=== PATIENT | female | born 1935 | race Caucasian/White ===

== ENCOUNTER → 2021-04-13 | Outpatient (CLI) | payer SELFPAY | LOC: LAB SHORT 15:21 | DX: R30.0 Dysuria (principal) | CPT/HCPCS: 87077; 87086; 87186 ==

== ENCOUNTER → 2022-07-10 | Outpatient (CLI) | payer MEDICARE, OTHER | END | disposition home or self-care (01) | LOC: LAB SHORT 14:00 → LAB 14:00 | DX: R30.0 Dysuria (principal) | CPT/HCPCS: 87086 ==

== ENCOUNTER → 2023-02-23 | Outpatient (CLI) | payer MEDICARE | LOC: LAB SHORT 15:15 → LAB 15:15 | DX: R10.9 Unspecified abdominal pain (principal) | CPT/HCPCS: 87086 ==

== ENCOUNTER → 2023-04-28 | Outpatient (CLI) | payer MEDICARE ==
[2023-04-30 12:59] LABS: Stool Occult Bld Immuno 1 Positive (NEGATIVE)
== END ==
LOC: LAB 09:15 → LAB SHORT 09:15
PROVIDERS: Student in an Organized Health Care Education/Training Program
DX: D50.9 Iron deficiency anemia, unspecified (principal)
CPT/HCPCS: 82274

== ENCOUNTER → 2023-05-11 | Outpatient (CLI) | payer MEDICARE ==
[2023-05-14 12:40] LABS: Stool Occult Bld Immuno 1 Negative (NEGATIVE)
== END ==
LOC: LAB 11:15 → LAB SHORT 11:15
PROVIDERS: Student in an Organized Health Care Education/Training Program
DX: D50.9 Iron deficiency anemia, unspecified (principal)
CPT/HCPCS: 82274

== ENCOUNTER → 2023-05-21 | Outpatient (CLI) | payer MEDICARE | LOC: LAB 17:08 → LAB SHORT 17:08 | DX: R30.0 Dysuria (principal) | CPT/HCPCS: 87086 ==

== ENCOUNTER 2023-06-01 11:49 | Inpatient (IN) | payer MEDICARE, OTHER ==
[~2023-06-01] VITALS: Ht 162.6 cm; Wt 64.0 kg
[2023-06-01] MEDS ORDERED: NS 1,000 ML IV SCH ×2 (12:30→15:20)
[2023-06-01 12:41] LABS: BASOPHILS ABSOLUTE AUTO 0.02 K/mm3 (0.00-0.23); BASOPHILS PERCENT AUTO 0 % (0-2); EOSINOPHILS PERCENT AUTO 0 % (0-6); Hematocrit 34.4 % (33.0-51.0); Hemoglobin 11.3 g/dL (11.5-16.0); IMMATURE GRAN ABSOLUTE AUTO 0.06 K/mm3 (0.00-0.10); IMMATURE GRAN PERCENT AUTO 0 % (0-1); LYMPHOCYTES PERCENT AUTO 2 % (21-46); MONOCYTES ABSOLUTE AUTO 0.59 K/mm3 (0.16-1.47); MONOCYTES PERCENT AUTO 4 % (4-13); Mean Corpuscular HGB 23.8 pg (26.0-34.0); Mean Corpuscular HGB Conc 32.8 g/dL (31.5-36.5); Mean Corpuscular Volume 73 fL (80-100); Mean Platelet Volume 9.4 fL (9.1-12.4); NEUTROPHILS ABSOLUTE AUTO 14.72 K/mm3 (1.96-9.15); NEUTROPHILS PERCENT AUTO 94 % (41-73); Platelet Count 461 K/mm3 (150-400); RDW Standard Deviation 59.4 fL (35.1-46.3); Red Blood Cell Count 4.74 M/mm3 (3.80-5.20); White Blood Cell Count 15.69 K/mm3 (4.00-11.30)
[2023-06-01] MEDS ORDERED: Ondansetron HCl 2 MG / ML 2ML Vial IV ONE (12:55)
[2023-06-01] MEDS ORDERED: HYDROmorphone HCl/Pf 1MG SYR IV ONE (12:55)
[2023-06-01] MEDS ORDERED: LIPITOR80 MG PO (13:05)
[2023-06-01] MEDS ORDERED: METOPROLOL SUCC25 MG PO (13:05)
[2023-06-01] MEDS ORDERED: FERSU300 PO (13:06)
[2023-06-01 13:10] LABS: Albumin, Blood 2.5 g/dL (3.4-5.0); Albumin/Globulin Ratio 0.7 (0.8-1.8); Bilirubin, Total 1.1 mg/dL (0.1-1.0); Bun/Creatinine Ratio 25.8 (12.0-20.0); Calcium, Blood 8.5 mg/dL (8.5-10.1); Creatinine, Blood 0.7 mg/dL (0.40-1.00); Globulin, Blood 3.7 g/dL (2.2-4.0); Potassium, Blood 4.1 mmol/L (3.5-5.5); Total Protein, Blood 6.2 g/dL (6.4-8.2)
[2023-06-01] MEDS ORDERED: Metoprolol Tartrate 1 MG/ML 5 ML VIAL IV ONE (13:50)
[2023-06-01 13:55] LABS: Source, Urine Fem Cath
[2023-06-01 13:58] LABS: Appearance, Urine Clear (Clear); Bilirubin, Urine Neg (Neg); Blood, Urine Neg (Neg); Color, Urine Yellow (P-Yellow); Glucose Qualitative, Urine Neg (Neg); Ketones, Urine 1+ (Neg); Leukocyte Esterase, Urine Neg (Neg); Nitrite, Urine Neg (Neg); Protein, Urine 1+ (Neg); Specific Gravity, Urine 1.025 (1.003-1.022); Urobilinogen, Urine NORM (Normal)
[2023-06-01] MEDS ORDERED: FLU VACC QS2023-24(6MOS UP)/PF 60 MCG/0.5 ML SYRINGE IM ONE (15:20)
[2023-06-01] MEDS ORDERED: MetroNIDAZOLE 500MG/NS 100 ml 100 ML IV SCH (16:00)
[2023-06-01] MEDS ORDERED: CefTRIAXone Sodium 1,000 MG in NS 50 ML IV SCH (16:00)
[2023-06-01] MEDS ORDERED: Ondansetron HCl 2 MG / ML 2ML Vial IV PRN (16:10)
[2023-06-01 16:13] LABS: International Normalized Ratio 1.11; Prothrombin Time Results 11.6 Sec (9.7-11.5)
[2023-06-01] MEDS ORDERED: Morphine Sulfate 4 MG/1 ML Injection IV PRN (16:15)
[2023-06-01 16:19] LABS: Percent Saturation 5.6 % (15.0-50.0)
[2023-06-01 16:41] VITALS: BP 157/73
--- NOTE | 2023-06-01 17:39 | NUR ---
ARRIVAL TO PCU/SHIFT SUMMARY patient arrived to pcu at 1628 from ed and transfered to pcu bed via slider sheet. vital signs stable. when arriving patient was in sinus rhythm in the 80-90s and about 10s mins after arriving heart rate increased to 130s, and appears to be in sinus tach. this rn informed md mueller and orders placed. patient is alert and oriented x4. perrla. patient is able to make needs known and uses call light appropriately. neuro is intact. patient uses a cane at baseline. see admit shift assessment for further detials. admit is complete. surgery consult called in. patient is npo and patient and patient granddaughte aware of plan and verbalized understanding. plan of care is up to date.
[2023-06-01] MEDS ORDERED: Metoprolol Tartrate 1 MG/ML 5 ML VIAL IV PRN (17:40)
[2023-06-01] MEDS ORDERED: Metoprolol Succinate 25 MG TABCR PO ONE (17:45)
[2023-06-01 18:36] VITALS: BP 156/99
[2023-06-01 19:33] VITALS: BP 160/95
[2023-06-02] VITALS (21 sets, daily range): BP systolic 119–175; BP diastolic 61–108
[2023-06-02 04:09] LABS: Hematocrit 32.7 % (33.0-51.0); Hemoglobin 10.2 g/dL (11.5-16.0); Mean Corpuscular HGB 23.3 pg (26.0-34.0); Mean Corpuscular HGB Conc 31.2 g/dL (31.5-36.5); Mean Corpuscular Volume 75 fL (80-100); Mean Platelet Volume 9.7 fL (9.1-12.4); Platelet Count 482 K/mm3 (150-400); RDW Standard Deviation 61.7 fL (35.1-46.3); Red Blood Cell Count 4.38 M/mm3 (3.80-5.20); White Blood Cell Count 13.41 K/mm3 (4.00-11.30)
[2023-06-02 04:30] LABS: Albumin/Globulin Ratio 0.6 (0.8-1.8); Bilirubin, Total 0.8 mg/dL (0.1-1.0); Bun/Creatinine Ratio 26.2 (12.0-20.0); Creatinine, Blood 0.65 mg/dL (0.40-1.00); Globulin, Blood 3.2 g/dL (2.2-4.0); Potassium, Blood 4.2 mmol/L (3.5-5.5); Total Protein, Blood 5.2 g/dL (6.4-8.2)
[2023-06-02 04:44] LABS: BAND PERCENT MAN 4 % (0-8); BASOPHILS PERCENT MAN 0 % (0-2); EOSINOPHILS PERCENT MAN 0 % (0-6); LYMPHOCYTES PERCENT MAN 3 % (21-46); MONOCYTES PERCENT MAN 12 % (4-13); NEUTROPHILS ABSOLUTE MAN 11.39 K/mm3 (1.96-9.15); SEG NEUTROPHILS PERCENT MAN 81 % (41-73); TOTAL CELLS COUNTED 100
[2023-06-02] MEDS ORDERED: Dextrose 50% 50 ML Syringe IV ONE (04:45)
--- NOTE | 2023-06-02 05:10 | NUR ---
SHIFT SUMMARY PT A&O X4. ABLE TO MAKE NEEDS KNOWN. SLIGHTLY YAVAPAI-APACHE. SR/ST ON MONITOR RANGING FROM 70-140'S. LOPRESSOR PUSH GIVEN X1 FOR HR 130-140'S, HR DECREASED TO 120'S AFTER ADMINISTRATION. BP STABLE. AFEBRILE. ON RA WITH SPO2 >92%. UP TO BATHROOM WITH FWW. PT NPO. CALLING APPROPRIATELY. PT'S GLUCOSE NOTED TO BE 64 ON MORNING LABS. CALL PLACED TO MD QUINN REGARDING HYPOGLYCEMIA AND NPO STATUS FOR POSSIBLE SURGICAL INTERVENTION AND BOWEL OBSTRUCTION. ORDER FOR 1 AMP OF D50 GIVEN PER EMAR. WILL RECHECK BS PER PROTOCOL. BED IN LOWEST POSITION AND CALL LIGHT WITHIN REACH. THIS RN WILL REPORT TO MARIETTA QUIÑONES RN.
[2023-06-02] MEDS ORDERED: D5W-NS 1,000 ML IV SCH (09:00)
[2023-06-02] MEDS ORDERED: Rocuronium Bromide 10 MG/ML 5ML Injection IV ONE (09:17)
[2023-06-02] MEDS ORDERED: propofoL 20 ML IV ONE (09:17)
[2023-06-02] MEDS ORDERED: FentaNYL Citrate 50 MCG/ML 2 ML Injection ONE ×4 (09:18→13:22)
[2023-06-02] MEDS ORDERED: Lactated Ringer's 1,000 ML IV ONE (10:20)
[2023-06-02] MEDS ORDERED: Bupivacaine 0.5% HCl 5 MG/ML 30MLVIAL ONE (10:55)
[2023-06-02] MEDS ORDERED: Ondansetron HCl 2 MG / ML 2ML Vial IV PRN (11:10)
[2023-06-02] MEDS ORDERED: HYDROmorphone HCl/Pf 1MG SYR IV PRN ×2 (11:10→15:30)
[2023-06-02] MEDS ORDERED: FentaNYL Citrate 50 MCG/ML 2 ML Injection IV PRN ×2 (11:10)
[2023-06-02] MEDS ORDERED: Phenylephrine HCl 100 MCG/ML-NS 10MLSYR (1MG/10ML) ONE (11:19)
[2023-06-02] MEDS ORDERED: ePHEDrine Sulfate 50 MG/ML 1ML Injection ONE (11:22)
[2023-06-02] MEDS ORDERED: Ondansetron HCl 2 MG / ML 2ML Vial ONE (11:31)
[2023-06-02] MEDS ORDERED: Dexamethasone Sod Phos 10 MG/ML 1ML VIAL ONE (11:31)
[2023-06-02] MEDS ORDERED: Sugammadex Sodium 200 MG/2ML SDV (100 MG/ML) ONE (12:00)
[2023-06-02] MEDS ORDERED: Metoprolol Succinate 25 MG TABCR PO SCH (17:05)
[2023-06-02] MEDS ORDERED: Metoprolol Tartrate 25 MG Tab PO ONE (19:35)
--- NOTE | 2023-06-02 19:42 | NUR ---
SHIFT SUMMARY POD0 R DENILSON COLECTOMY, A/O X2-3, PT HAS BEEN INCREASINGLY CONFUSED TODAY POST OPERATIVELY, SHE HAD RUN OF SVT TODAY AND WAS GIVEN HER PRN JOSIANE, NOTIFIED WHEN HR ONLY CAME DOWN TO 140'S, GAVE 0900 METOPROLOL PER RESIDENTS ORDER. PAIN WAS DIFFICULT TO MANAGE INITIALLY BUT WAS IMPROVED AFTER DISCUSSING THIS WITH SURGEON. SHE HAS BEEN PULLING AT LINES SHE HAS BEEN CONFUSED AND STAFF HAVE HAD TO FIX TELEMETRY LEADS 4X IN THE LAST HOUR OF THE SHIFT. PT MOVED TO ROOM 212 TO BE CLOSER TO RN STATION. NO OTHER EVENTS THIS SHIFT, CALL LIGHT IN REACH.
[2023-06-02] MEDS ORDERED: Metoprolol Tartrate 1 MG/ML 5 ML VIAL IV ONE (20:35)
--- NOTE | 2023-06-02 21:01 | NUR ---
HEART RATE MANAGEMENT NOTIFIED ABOUT 1950 FROM TELEMETRY THAT THE PT'S HR WAS 150'S AND SUSTAINING. VITALS OBTAINED. CALL PLACED TO [facility]. DR. COOK ORDERED 25 MG PO METOPROLOL AND TO RECHECK IN 45 MINUTES. HR REMAINED 139-145. DR COOK UPDATED AND RECIEVED ORDER FOR IV METOPROLOL IV. HR FELL TO THE 80'S WITHIN MINUTES.
[2023-06-03 04:23] VITALS: BP 116/60
--- NOTE | 2023-06-03 05:21 | NUR ---
SHIFT SUMMARY POD1 R HEMICOLECTOMY. PICCO REMAINS C/D/I, ONE SMALL SPOT OF EXUDATE REMAINS THE SAME T/O THE NIGHT. VSS, TELE READS SR 81. PT TIRATED TO RA. PLEASE SEE PREVIOUS NOTE FOR HR MANAGEMENT. PT SLEPT WELL T/O THE NIGHT. TOLLERATED WATER W/O N/V. DID NOT GET OOB THIS SHIFT. HOANG REMAINS IN PLACE, LOW URINE OUTPUT NOTED, 100MLS. URINE WAS DARK BROWN. HOSPITALIST NOTIFIED, NO NEW ORDERS RECIEVED. IV FLUIDS INFUSED T/O THE NIGHT. NO ACUTE EVENTS NOTED T/O THE NIGHT.
[2023-06-03 05:36] LABS: Hematocrit 31.3 % (33.0-51.0); Hemoglobin 9.8 g/dL (11.5-16.0); Mean Corpuscular HGB 23.4 pg (26.0-34.0); Mean Corpuscular HGB Conc 31.3 g/dL (31.5-36.5); Mean Corpuscular Volume 75 fL (80-100); Mean Platelet Volume 9.4 fL (9.1-12.4); Platelet Count 445 K/mm3 (150-400); RDW Coefficient Variation 22.8 % (11.7-14.2); RDW Standard Deviation 61.4 fL (35.1-46.3); Red Blood Cell Count 4.18 M/mm3 (3.80-5.20); White Blood Cell Count 10.92 K/mm3 (4.00-11.30)
[2023-06-03 05:56] LABS: Albumin, Blood 1.7 g/dL (3.4-5.0); Albumin/Globulin Ratio 0.6 (0.8-1.8); Bilirubin, Total 0.3 mg/dL (0.1-1.0); Calcium, Blood 7.6 mg/dL (8.5-10.1); Globulin, Blood 2.9 g/dL (2.2-4.0); Potassium, Blood 4.2 mmol/L (3.5-5.5); Total Protein, Blood 4.6 g/dL (6.4-8.2)
[2023-06-03 06:01] LABS: BAND PERCENT MAN 4 % (0-8); BASOPHILS PERCENT MAN 0 % (0-2); EOSINOPHILS PERCENT MAN 0 % (0-6); LYMPHOCYTES ABSOLUTE MAN 0.32 K/mm3 (0.84-5.20); LYMPHOCYTES PERCENT MAN 3 % (21-46); MONOCYTES ABSOLUTE MAN 0.87 K/mm3 (0.16-1.47); MONOCYTES PERCENT MAN 8 % (4-13); NEUTROPHILS ABSOLUTE MAN 9.71 K/mm3 (1.96-9.15); SEG NEUTROPHILS PERCENT MAN 85 % (41-73); TOTAL CELLS COUNTED 100
[2023-06-03 07:15] VITALS: BP 110/62
[2023-06-03] MEDS ORDERED: Metoprolol Succinate 25 MG TABCR PO SCH (09:00)
--- NOTE | 2023-06-03 11:48 | NUR ---
DR DELGADO IN TO SEE PT/FAMILY
[2023-06-03 15:02] VITALS: BP 111/60
--- NOTE | 2023-06-03 15:47 | NUR ---
URINE ROOTBEER COLOR IN APPEARANCE. REPORTED URINE APPEARANCE AND ONLY APPROXIMATELY 150 ML OUT THIS SHIFT TO DR COLEMAN. CONTINUE FLUIDS AT CURRENT RATE.
--- NOTE | 2023-06-03 16:55 | NUR ---
SUMMARY PT HAS BEEN VERY SLEEPY T/O MOST OF SHIFT. WAKES TO VOICE AND THEN RETURNS TO SLEEP. PT'S SON DID NOT FEEL PT ABLE TO WORK WITH PT DUE TO FATIGUE/SLEEPINESS. DISCUSSED IMPORTANCE OF MOBILIZING. PT'S SON VERBALIZED UDNERSTANDING AND IS AGREEABLE. PT HAS HAD LOW URINARY OUTPUT THIS SHIFT AND URINE IS ROOTBEER COLOR IN APPEARANCE. DR COLEMAN AWARE. PT APPEARS FLUSHED THIS AFTERNOON. ORAL TEMP WAS 99.1. INSTRUCTED PT AND PT'S SON ON IS USE. PT HAD DIFFICULTY DEMONSTRATING. SON STATED HE WOULD CONTINUE TO WORK ON IT WITH HER. REPOSITIONED PT T/O SHIFT. CALL LIGHT IN REACH. IV FLUIDS INFUSING PER ORDERS.
--- NOTE | 2023-06-03 18:08 | NUR ---
PATIENTS SON REQUEST TO LET HER SLEEP.OFFERED TO WAKE AND SET DINNER UP.
[2023-06-03 19:04] VITALS: BP 104/60
[2023-06-03 22:55] VITALS: BP 112/66
[2023-06-04 04:03] VITALS: BP 116/66
--- NOTE | 2023-06-04 06:27 | NUR ---
POD 2 S/P DENILSON COLECTOMY. PT VSS T/O NIGHT. KLEBER DRESSING W/SEAL AND SX INTACT, NO INC DRNG NOTED. PT DENIED PAIN T/O NIGHT, DECLINED PAIN MEDS. KPAD AND REPOSITIONING FOR COMFORT PRN. BT HYPO, NO CHANGES IN DISTENTION, PT DENIED N/V, REP NO FLATUS YET. PT ASSISTED W/SIPS OF WATER. HOANG PATANT, URINE REMAINS COLA COLORED, 150 ML UO OUT THIS SHIFT. IVF CONT PER ORDERS. SON PRESENT IN ROOM T/O NIGHT.
[2023-06-04 07:58] VITALS: BP 128/63
--- NOTE | 2023-06-04 08:02 | NUR ---
DRS IN TO SEE PT. DISCUSSED URINE OUTPUT. PERFORMING BS. REPORTED BRUISING TO RUE R/T IV INFILTRATION ON SATURDAY.
[2023-06-04 08:46] LABS: Albumin, Blood 1.5 g/dL (3.4-5.0); Anion Gap 0 mmol/L (6-16); Blood Urea Nitrogen 21 mg/dL (8-24); Bun/Creatinine Ratio 22.6 (12.0-20.0); CO2, Blood 23 mmol/L (21-32); Calcium, Blood 7.4 mg/dL (8.5-10.1); Chloride, Blood 118 mmol/L (98-108); Creatinine, Blood 0.93 mg/dL (0.40-1.00); Glomerular Filtration Rate 59 (60-); Glucose, Blood 121 mg/dL (70-99); Phosphorus, Blood 1.7 mg/dL (2.5-4.9); Potassium, Blood 3.7 mmol/L (3.5-5.5); Sodium, Blood 141 mmol/L (136-145)
[2023-06-04] MEDS ORDERED: Atorvastatin 40 MG Tab PO SCH (09:00)
--- NOTE | 2023-06-04 11:20 | NUR ---
DR DELGADO IN TO SEE PT. PT UP IN RECLINER. PROVIDED ORAL SWAB FOR PT FOR COMFORT. PT DENIES ANY OTHE NEEDS. FAMILY BEDSIDE.
[2023-06-04 16:09] VITALS: BP 122/65
[2023-06-04] MEDS ORDERED: Lactated Ringer's 1,000 ML IV SCH (16:55)
--- NOTE | 2023-06-04 18:18 | NUR ---
SUMMARY NO ACUTE CHANGES T/O SHIFT. PT WORKED WITH THERAPY AND SAT UP IN CHAIR FOR APPROXIMATELY 2 HOURS. ADVANCED TO REGULAR DIET FOR DINNER. TAKING SMALL AMOUNTS OF PO INTAKE. HAS DENIED NEED FOR PAIN MEDS. PASSED FLATUS THIS AM. URINARY OUTPUT CONTINUES TO BE POOR AND VERY DARK. DISCUSSED WITH DR COLEMAN AND ORDERS OBTAINED TO CHANGE FLUIDS TO LR AT 125/HR. FAMILY HAS BEEN BEDSIDE T/O DAY. CALL LIGHT IN REACH.
[2023-06-04 18:53] VITALS: BP 95/55
[2023-06-04] MEDS ORDERED: Enoxaparin 40 MG/0.4 ML SYR SC SCH (21:00)
--- NOTE | 2023-06-05 04:09 | NUR ---
SHIFT SUMMARY POD 3 R HEMICOLECTOMY PT ABLE TO SLEEP ALL NIGHT. DENIES ANY PAIN. STILL LITTLE URINE OUTPUT. URINE STILL ROOTBEER COLORED. HOANG PATENT AND DRAINING TO GRAVITY. IV FLUIDS RUNNING PER ORDER. VSS. NO OTHER CONCERNS AT THIS TIME. CALL LIGHT WITHIN REACH.
[2023-06-05 04:27] VITALS: BP 127/67
[2023-06-05 04:55] LABS: BASOPHILS ABSOLUTE AUTO 0.02 K/mm3 (0.00-0.23); BASOPHILS PERCENT AUTO 0 % (0-2); EOSINOPHILS ABSOLUTE AUTO 0.04 K/mm3 (0.00-0.68); EOSINOPHILS PERCENT AUTO 0 % (0-6); Hematocrit 26.1 % (33.0-51.0); Hemoglobin 8.4 g/dL (11.5-16.0); IMMATURE GRAN ABSOLUTE AUTO 0.11 K/mm3 (0.00-0.10); IMMATURE GRAN PERCENT AUTO 1 % (0-1); LYMPHOCYTES ABSOLUTE AUTO 0.64 K/mm3 (0.84-5.20); LYMPHOCYTES PERCENT AUTO 4 % (21-46); MONOCYTES ABSOLUTE AUTO 0.88 K/mm3 (0.16-1.47); MONOCYTES PERCENT AUTO 6 % (4-13); Mean Corpuscular HGB 23.4 pg (26.0-34.0); Mean Corpuscular HGB Conc 32.2 g/dL (31.5-36.5); Mean Corpuscular Volume 73 fL (80-100); Mean Platelet Volume 9.9 fL (9.1-12.4); NEUTROPHILS PERCENT AUTO 89 % (41-73); Platelet Count 336 K/mm3 (150-400); RDW Coefficient Variation 22.4 % (11.7-14.2); RDW Standard Deviation 58.7 fL (35.1-46.3); Red Blood Cell Count 3.59 M/mm3 (3.80-5.20); White Blood Cell Count 15.49 K/mm3 (4.00-11.30)
[2023-06-05 05:09] LABS: Albumin, Blood 1.3 g/dL (3.4-5.0); Albumin/Globulin Ratio 0.4 (0.8-1.8); Bilirubin, Total 0.4 mg/dL (0.1-1.0); Calcium, Blood 7.3 mg/dL (8.5-10.1); Creatinine, Blood 0.81 mg/dL (0.40-1.00); Globulin, Blood 2.9 g/dL (2.2-4.0); Potassium, Blood 3.7 mmol/L (3.5-5.5); Total Protein, Blood 4.2 g/dL (6.4-8.2)
[2023-06-05 07:26] VITALS: BP 124/60
[2023-06-05] MEDS ORDERED: TraMADol HCl 50 MG Tab PO PRN (11:15)
[2023-06-05 15:15] VITALS: BP 118/66
[2023-06-05] MEDS ORDERED: Thiamine HCl 100 MG Tab PO ONE (17:25)
[2023-06-05 18:47] VITALS: BP 127/64
[2023-06-05 18:50] LABS: Magnesium, Blood 1.6 mg/dL (1.6-2.4)
[2023-06-05 18:51] LABS: Phosphorus, Blood 1.7 mg/dL (2.5-4.9)
--- NOTE | 2023-06-05 20:08 | NUR ---
SHIFT SUMMARY PT HAS AN INCREASE IN PO INTAKE, URINE OUTPUT, & ACTIVITY. CONT's TO HAVE VERY DARK, SODA COLORED URINE. TRAMADOL WORKED WELL FOR PAIN.
[2023-06-06 04:54] VITALS: BP 122/65
[2023-06-06 05:08] LABS: BASOPHILS ABSOLUTE AUTO 0.03 K/mm3 (0.00-0.23); BASOPHILS PERCENT AUTO 0 % (0-2); EOSINOPHILS ABSOLUTE AUTO 0.13 K/mm3 (0.00-0.68); EOSINOPHILS PERCENT AUTO 1 % (0-6); Hematocrit 26.1 % (33.0-51.0); Hemoglobin 8.6 g/dL (11.5-16.0); IMMATURE GRAN ABSOLUTE AUTO 0.09 K/mm3 (0.00-0.10); IMMATURE GRAN PERCENT AUTO 1 % (0-1); LYMPHOCYTES ABSOLUTE AUTO 0.56 K/mm3 (0.84-5.20); LYMPHOCYTES PERCENT AUTO 4 % (21-46); MONOCYTES ABSOLUTE AUTO 1.06 K/mm3 (0.16-1.47); MONOCYTES PERCENT AUTO 8 % (4-13); Mean Corpuscular HGB 23.7 pg (26.0-34.0); Mean Corpuscular Volume 72 fL (80-100); Mean Platelet Volume 9.4 fL (9.1-12.4); NEUTROPHILS ABSOLUTE AUTO 10.96 K/mm3 (1.96-9.15); NEUTROPHILS PERCENT AUTO 85 % (41-73); Platelet Count 344 K/mm3 (150-400); RDW Coefficient Variation 22.5 % (11.7-14.2); RDW Standard Deviation 57.9 fL (35.1-46.3); Red Blood Cell Count 3.63 M/mm3 (3.80-5.20); White Blood Cell Count 12.83 K/mm3 (4.00-11.30)
[2023-06-06 05:46] LABS: Bun/Creatinine Ratio 25.8 (12.0-20.0); Calcium, Blood 7.6 mg/dL (8.5-10.1); Creatinine, Blood 0.77 mg/dL (0.40-1.00); Magnesium, Blood 1.6 mg/dL (1.6-2.4); Phosphorus, Blood 2.2 mg/dL (2.5-4.9); Potassium, Blood 3.7 mmol/L (3.5-5.5)
--- NOTE | 2023-06-06 05:48 | NUR ---
SHIFT SUMMARY POD 4 R HEMICOLECTOMY PT SLEPT T/O THE NIGHT. DENIES ANY PAIN. HOANG PATENT AND DRAINING ROOTBEER COLORED URINE STILL. TOTAL OF 200ML URINE OUT DURING THE NIGHT. TOLERATING PO INTAKE. VSS. NO OTHER CONCERNS AT THIS TIME. CALL LIGHT WITHIN REACH
[2023-06-06 08:09] VITALS: BP 139/72
[2023-06-06] MEDS ORDERED: Thiamine HCl 100 MG Tab PO SCH (09:00)
--- NOTE | 2023-06-06 11:39 | NUR ---
"Spiritual Care | Cold Call attempted Pt. is resting and is mostly non responsive. Son is at bedside. facilitateed life review. Pt. politely dsclined spiritual care fore the Pt. but verbalized gratitude for the visit."
--- NOTE | 2023-06-06 15:01 | NUR ---
KLEBER DC'd DUE TO STOOL ON DRSG. CHANGED TO MEDIPORE. STAPLE LINE WNL.
[2023-06-06 16:37] VITALS: BP 124/62
[2023-06-06 19:25] VITALS: BP 135/66
--- NOTE | 2023-06-06 19:36 | NUR ---
SHIFT SUMMARY PT HAS DONE WELL TODAY IN REGUARDS TO EATING & DRINKING. BUT DID POORLY w/ ACTIVITY. VERY WEAK TODAY. IV INFILTRATED TODAY. MEDS CHANGED TO PO. URINE OUTPUT REMAINS AVERAGE. PLAN FOR DC TO SNF TOMORROW.
[2023-06-06] MEDS ORDERED: Cefpodoxime Proxetil 200 MG Tab PO SCH (21:00)
[2023-06-06] MEDS ORDERED: MetroNIDAZOLE 500 MG Tab PO SCH (21:00)
[2023-06-06] MEDS ORDERED: Lactobacil 2-S.Thermo-Bifido 1 1 Cap PO SCH (21:00)
--- NOTE | 2023-06-07 05:17 | NUR ---
SHIFT SUMMARY POD 5 R HEMICOLECTOMY PT ABLE TO REST T/O NIGHT. HAVING LITTLE PAIN IN HER L HEEL, PILLOWS UNDER TO PROP UP AND CREAM APPLIED, SEEMS TO HELP, DENIES THE NEED FOR ANY PAIN MEDICATION. HOANG PATENT AND DRAING TO GRAVITY, URINE ROOTBEER COLORED STILL. MEDIPORE DRESSING TO MIDLINE IS C/D/I. VSS. TOLERTING REGULAR DIET.PASSING GAS. PLAN FOR D/C TO SNF TODAY. NO OTHER CAONCERNS AT THIS TIME. CALL LIGHT WITHIN REACH
[2023-06-07 05:20] VITALS: BP 130/68
[2023-06-07 05:41] LABS: BASOPHILS ABSOLUTE AUTO 0.03 K/mm3 (0.00-0.23); BASOPHILS PERCENT AUTO 0 % (0-2); EOSINOPHILS ABSOLUTE AUTO 0.14 K/mm3 (0.00-0.68); EOSINOPHILS PERCENT AUTO 1 % (0-6); Hematocrit 27.7 % (33.0-51.0); Hemoglobin 8.9 g/dL (11.5-16.0); IMMATURE GRAN ABSOLUTE AUTO 0.14 K/mm3 (0.00-0.10); IMMATURE GRAN PERCENT AUTO 1 % (0-1); LYMPHOCYTES ABSOLUTE AUTO 0.76 K/mm3 (0.84-5.20); LYMPHOCYTES PERCENT AUTO 6 % (21-46); MONOCYTES PERCENT AUTO 9 % (4-13); Mean Corpuscular HGB 23.4 pg (26.0-34.0); Mean Corpuscular HGB Conc 32.1 g/dL (31.5-36.5); Mean Corpuscular Volume 73 fL (80-100); Mean Platelet Volume 9.9 fL (9.1-12.4); NEUTROPHILS ABSOLUTE AUTO 11.56 K/mm3 (1.96-9.15); NEUTROPHILS PERCENT AUTO 83 % (41-73); Platelet Count 384 K/mm3 (150-400); RDW Coefficient Variation 22.3 % (11.7-14.2); Red Blood Cell Count 3.81 M/mm3 (3.80-5.20); White Blood Cell Count 13.93 K/mm3 (4.00-11.30)
[2023-06-07 06:11] LABS: Albumin, Blood 1.3 g/dL (3.4-5.0); Albumin/Globulin Ratio 0.4 (0.8-1.8); Bilirubin, Total 0.5 mg/dL (0.1-1.0); Bun/Creatinine Ratio 24.6 (12.0-20.0); Calcium, Blood 7.6 mg/dL (8.5-10.1); Creatinine, Blood 0.73 mg/dL (0.40-1.00); Globulin, Blood 3.3 g/dL (2.2-4.0); Magnesium, Blood 1.6 mg/dL (1.6-2.4); Phosphorus, Blood 2.3 mg/dL (2.5-4.9); Potassium, Blood 3.7 mmol/L (3.5-5.5); Total Protein, Blood 4.6 g/dL (6.4-8.2)
[2023-06-07 07:13] VITALS: BP 140/77
[2023-06-07] MEDS ORDERED: Ferrous Gluconate 325 MG Tablet PO SCH (09:00)
[2023-06-07 09:16] VITALS: BP 116/72
[2023-06-07] MEDS ORDERED: Potassium Phosphate Dibasic 20 MM in Dextrose 5% 500 ML IV STA (09:26)
[2023-06-07] MEDS ORDERED: Nystatin 100,000 Unit/ML Susp 5 ML UDC MT SCH (10:00)
[2023-06-07] MEDS ORDERED: MAGNESIUM OXID500 MG PO (10:27)
[2023-06-07] MEDS ORDERED: CEFP200 PO (10:27)
[2023-06-07] MEDS ORDERED: B-1100 M1 PO (10:28)
[2023-06-07] MEDS ORDERED: TRAM50 PO (10:28)
[2023-06-07] MEDS ORDERED: METR500 PO (10:28)
[2023-06-07] MEDS ORDERED: VISBIOME 112.51 EACH (10:29)
[2023-06-07 11:29] LABS: SARS-Cov-2 (COVID-19) PCR, MMC NEGATIVE (NEGATIVE)
--- NOTE | 2023-06-07 11:37 | NUR ---
REPORT CALLED TO RN AT [facility] ON 06/07/23 AT [id number]
--- NOTE | 2023-06-07 12:58 | NUR ---
RN DISCHARGED THE PATIENT TO [facility] WITH A HOANG CATHETER WITHOUT HAVING AN ORDER TO DO SO. RN SPOKE WITH DR. COLEMAN AND VERIFIED THAT SHE WANTED THE HOANG TO BE DISCONTINUED. RN ON THE PHONE WITH [facility] TO HAVE THEM DISCONTINUE TO HOANG CATHETER. RN AT [facility] STATED SHE WOULD CALL THE PROVIDER FOR AN ORDER TO REMOVE THE HOANG CATHETER.
[2023-06-07] MEDS ORDERED: Magnesium Oxide 400 MG Tab PO SCH (21:00)
== END 2023-06-07 12:57 | DRG 329 ==
LOC: ER 11:49 → SURS 16:05 → PCU 16:05 → SURS 06-02 13:07
PROVIDERS: Family Medicine; Family Medicine Adult Medicine; Internal Medicine; Physician Assistant; Surgery; ADMIT Internal Medicine
PROC: 0DTF0ZZ Resection of Right Large Intestine, Open Approach (ICD-10-PCS; principal; 2023-06-02 08:00)
DX: C18.0 Malignant neoplasm of cecum (principal); I21.A1 Myocardial infarction type 2; K56.2 Volvulus; C18.2 Malignant neoplasm of ascending colon; R65.10 Systemic inflammatory response syndrome (SIRS) of non-infectious origin without acute organ dysfunction; I48.92 Unspecified atrial flutter; N17.9 Acute kidney failure, unspecified; Z11.52 Encounter for screening for COVID-19; Z28.21 Immunization not carried out because of patient refusal; I10 Essential (primary) hypertension; D63.8 Anemia in other chronic diseases classified elsewhere; I25.10 Atherosclerotic heart disease of native coronary artery without angina pectoris; I25.2 Old myocardial infarction; Z95.5 Presence of coronary angioplasty implant and graft; Z88.0 Allergy status to penicillin; Z88.2 Allergy status to sulfonamides; Z79.899 Other long term (current) drug therapy
CPT/HCPCS: 36415; 74177; 80048; 80053; 80069; 82728; 82947; 83540; 83550; 83690; 83735; 84100; 84484; 85025; 85610; 85730; 87040; 88309; 93005; 93010; 93306; 94760; 96361; 96374-59; 96375; 97110; 97162; 97166; 97530; 97535; 99285-25; A9270; J0696; J1100; J1170; J1650; J2270; J2371; J2405; J2704; J3010; J7030; J7042; J7120; P9612; Q9967; U0002

== ENCOUNTER 2023-07-01 15:06 | Inpatient (IN) | payer MEDICARE, OTHER ==
[~2023-07-01] VITALS: Ht 167.6 cm; Wt 72.6 kg
[~2023-07-01 15:06] MED LIST: B-1100 M1 PO; CEFP200 PO; FERSU300 PO; LIPITOR80 MG PO; MAGNESIUM OXID500 MG PO; METOPROLOL SUCC25 MG PO; METR500 PO; TRAM50 PO; VISBIOME 112.51 EACH
[2023-07-01] MEDS ORDERED: NS 1,000 ML IV SCH (15:50)
[2023-07-01 16:04] LABS: BASOPHILS ABSOLUTE AUTO 0.08 K/mm3 (0.00-0.23); BASOPHILS PERCENT AUTO 0 % (0-2); EOSINOPHILS ABSOLUTE AUTO 0.09 K/mm3 (0.00-0.68); EOSINOPHILS PERCENT AUTO 0 % (0-6); Hematocrit 33.7 % (33.0-51.0); Hemoglobin 10.9 g/dL (11.5-16.0); IMMATURE GRAN PERCENT AUTO 1 % (0-1); LYMPHOCYTES ABSOLUTE AUTO 0.69 K/mm3 (0.84-5.20); LYMPHOCYTES PERCENT AUTO 2 % (21-46); MONOCYTES ABSOLUTE AUTO 1.99 K/mm3 (0.16-1.47); MONOCYTES PERCENT AUTO 7 % (4-13); Mean Corpuscular HGB 23.7 pg (26.0-34.0); Mean Corpuscular HGB Conc 32.3 g/dL (31.5-36.5); Mean Corpuscular Volume 73 fL (80-100); Mean Platelet Volume 9.8 fL (9.1-12.4); NEUTROPHILS ABSOLUTE AUTO 25.28 K/mm3 (1.96-9.15); NEUTROPHILS PERCENT AUTO 89 % (41-73); Platelet Count 880 K/mm3 (150-400); RDW Coefficient Variation 23.5 % (11.7-14.2); RDW Standard Deviation 59.3 fL (35.1-46.3); Red Blood Cell Count 4.59 M/mm3 (3.80-5.20); White Blood Cell Count 28.53 K/mm3 (4.00-11.30)
[2023-07-01 16:07] LABS: Source, Urine Clean Catch
[2023-07-01 16:38] LABS: Appearance, Urine Turbid (Clear); Blood, Urine 1+ (Neg); Color, Urine Yellow (P-Yellow); Glucose Qualitative, Urine Neg (Neg); Ketones, Urine 1+ (Neg); Leukocyte Esterase, Urine 3+ (Neg); Nitrite, Urine Neg (Neg); Protein, Urine 2+ (Neg); Urobilinogen, Urine NORM (Normal)
[2023-07-01 16:39] LABS: Bilirubin, Urine 1+ (Neg)
[2023-07-01 16:42] LABS: White Blood Cells, Urine 25-50 /hpf (0-5); Yeast/Fungi Urine Many /hpf
[2023-07-01 16:43] LABS: Bacteria Many /hpf; Red Blood Cells, Urine 0-2 /hpf (0-2); Squamous Epithelial Cells Few /hpf (Few)
[2023-07-01 16:48] LABS: Albumin, Blood 1.3 g/dL (3.4-5.0); Albumin/Globulin Ratio 0.3 (0.8-1.8); Bilirubin, Total 0.6 mg/dL (0.1-1.0); Calcium, Blood 7.9 mg/dL (8.5-10.1); Creatinine, Blood 0.66 mg/dL (0.40-1.00); Globulin, Blood 4.9 g/dL (2.2-4.0); Potassium, Blood 6.1 mmol/L (3.5-5.5); Total Protein, Blood 6.2 g/dL (6.4-8.2)
[2023-07-01] MEDS ORDERED: ACET325 PO (17:48)
[2023-07-01] MEDS ORDERED: ELIQUIS5 M2 PO (17:49)
[2023-07-01] MEDS ORDERED: AZIT250 PO ×2 (17:49→23:18)
[2023-07-01] MEDS ORDERED: ATOR80 PO (17:49)
[2023-07-01] MEDS ORDERED: CEFTRIAXON1 GM/50 M1 (17:50)
[2023-07-01] MEDS ORDERED: FERSU300 PO (17:50)
[2023-07-01] MEDS ORDERED: GUAI600T33 PO ×2 (17:51→23:19)
[2023-07-01] MEDS ORDERED: METO50ER PO (17:52)
[2023-07-01] MEDS ORDERED: TRAM50 PO (17:53)
[2023-07-01] MEDS ORDERED: Dextrose 50% 50 ML Syringe IV ONE (19:30)
[2023-07-01] MEDS ORDERED: Calcium Gluconate 10% 1,000 MG in NS 50 ML IV ONE (19:30)
[2023-07-01] MEDS ORDERED: Insulin Regular 100 Unit/ML 1ML Dose IV ONE (19:30)
[2023-07-01] MEDS ORDERED: TraMADol HCl 50 MG Tab PO PRN (19:35)
[2023-07-01] MEDS ORDERED: Cefepime HCl 1,000 MG in NS 100 ML IV SCH (20:00)
[2023-07-01] MEDS ORDERED: MetroNIDAZOLE 500MG/NS 100 ml 100 ML IV SCH (20:00)
[2023-07-01] MEDS ORDERED: Magnesium Oxide 400 MG Tab PO SCH (21:00)
[2023-07-01] MEDS ORDERED: Apixaban 5 MG Tab PO SCH (21:00)
[2023-07-01] MEDS ORDERED: Lactobacil 2-S.Thermo-Bifido 1 1 Cap PO SCH (21:00)
[2023-07-01 21:50] VITALS: BP 106/68
[2023-07-01 22:23] LABS: Influenza A, PCR NEGATIVE (NEGATIVE); Influenza B, PCR NEGATIVE (NEGATIVE); Resp Syncytial Virus, PCR NEGATIVE (NEGATIVE); SARS-Cov-2 (COVID-19) PCR, MMC NEGATIVE (NEGATIVE)
[2023-07-01] MEDS ORDERED: Albuterol 2.5 MG/3 ML VIAL INH PRN (23:00)
[2023-07-01] MEDS ORDERED: FLUC200 PO (23:18)
[2023-07-01] MEDS ORDERED: MAGNESIUM OXID500 MG PO (23:19)
[2023-07-01] MEDS ORDERED: PHOS-NAK PO (23:21)
[2023-07-01] MEDS ORDERED: B-1100 M1 PO (23:21)
[2023-07-01 23:46] LABS: Bun/Creatinine Ratio 38.5 (12.0-20.0); Calcium, Blood 7.6 mg/dL (8.5-10.1); Creatinine, Blood 0.7 mg/dL (0.40-1.00)
[2023-07-01 23:47] LABS: Potassium, Blood 4.1 mmol/L (3.5-5.5)
[2023-07-02] MEDS ORDERED: Cefepime HCl 2,000 MG in NS 100 ML IV SCH
[2023-07-02 03:10] VITALS: BP 121/67
--- NOTE | 2023-07-02 04:53 | NUR ---
ALERT AND ORIENTED, VERY WEAK, PT/OT/ST ORDERED, PALLIATIVE CARE CONSULT, MAKES NEEDS KNOWN, WOUND SUPERFICIAL LAYERS ON COCCYX, PICTURES TAKEN AND NEW MEPILEX PLACED, PATIENT TOLERATED WELL, ATTENDS ON CDI, INCONTINENT, TELE NSR-TACHY 100S, 99% ON 2L O2 VIA NC, NO SOB, HELPS TURN AND REPOSITION, K DECREASED TO 4.1, NEW CMP TO BE RAN THIS AM, WHEN PATIENT WAKES CONTACT LIST NEEDS TO BE UPDATED, MAKES NEEDS KNOWN, CALL LIGHT WITH IN REACH, WILL RELAY TO PM RN
[2023-07-02] MEDS ORDERED: NS 250 ML IV PRN (05:00)
[2023-07-02 05:02] LABS: BASOPHILS ABSOLUTE AUTO 0.08 K/mm3 (0.00-0.23); BASOPHILS PERCENT AUTO 1 % (0-2); EOSINOPHILS ABSOLUTE AUTO 0.28 K/mm3 (0.00-0.68); EOSINOPHILS PERCENT AUTO 2 % (0-6); Hematocrit 30.7 % (33.0-51.0); Hemoglobin 9.7 g/dL (11.5-16.0); IMMATURE GRAN ABSOLUTE AUTO 0.24 K/mm3 (0.00-0.10); IMMATURE GRAN PERCENT AUTO 1 % (0-1); LYMPHOCYTES ABSOLUTE AUTO 0.72 K/mm3 (0.84-5.20); LYMPHOCYTES PERCENT AUTO 4 % (21-46); MONOCYTES PERCENT AUTO 9 % (4-13); Mean Corpuscular HGB 23.9 pg (26.0-34.0); Mean Corpuscular HGB Conc 31.6 g/dL (31.5-36.5); Mean Corpuscular Volume 76 fL (80-100); Mean Platelet Volume 9.3 fL (9.1-12.4); NEUTROPHILS ABSOLUTE AUTO 14.55 K/mm3 (1.96-9.15); NEUTROPHILS PERCENT AUTO 84 % (41-73); Platelet Count 633 K/mm3 (150-400); RDW Coefficient Variation 23.8 % (11.7-14.2); RDW Standard Deviation 62.5 fL (35.1-46.3); Red Blood Cell Count 4.06 M/mm3 (3.80-5.20); White Blood Cell Count 17.37 K/mm3 (4.00-11.30)
[2023-07-02 06:04] LABS: Albumin, Blood 1.2 g/dL (3.4-5.0); Albumin/Globulin Ratio 0.3 (0.8-1.8); Bilirubin, Total 0.4 mg/dL (0.1-1.0); Bun/Creatinine Ratio 35.2 (12.0-20.0); Calcium, Blood 7.8 mg/dL (8.5-10.1); Creatinine, Blood 0.77 mg/dL (0.40-1.00); Globulin, Blood 3.7 g/dL (2.2-4.0); Potassium, Blood 4.3 mmol/L (3.5-5.5); Total Protein, Blood 4.9 g/dL (6.4-8.2)
[2023-07-02 07:26] VITALS: BP 111/64
[2023-07-02] MEDS ORDERED: Atorvastatin 40 MG Tab PO SCH (09:00)
[2023-07-02] MEDS ORDERED: Metoprolol Succinate 25 MG TABCR PO SCH (09:00)
[2023-07-02] MEDS ORDERED: Furosemide 10 MG/ML 4ML Vial IV SCH (09:00)
--- NOTE | 2023-07-02 14:02 | NUR ---
Spiritual care visit conducted. Patient is alert and very pleasant. She explains about the family that live in the area and about her house on the [place]. She shares abot her Zoroastrianism Latter-Day vickie and about her desire to push through all these health issues and get back to her home. I provide therapeutic listening and prayer. Patient responded well and showed signs of an elevated mood.
[2023-07-02 15:16] VITALS: BP 126/78
--- NOTE | 2023-07-02 18:25 | NUR ---
SHIFT SUMMARY PT DOZING ON AND OFF THROUGH THE DAY. O.T. IN AND WORKED WITH PT THIS AFTERNOON AND HEART RATE WENT UP TO 140'S WHEN STANDING AND SITTING ON SIDE OF BED. FAMILY AT BEDSIDE FOR SHORT TIME AT LUNCH. TURNED SIDE TO SIDE THROUGH THE DAY. DRESSING CHANGED TO COCCYX. HAD LOOSE STOOL 2-3 TIMES TODAY. APPEARS THE BACK/INNER THIGHS HAVE A SPLOTCHY RAISED RASH. CREAM APPLIED. DOESN'T SMELL LIKE YEAST. O2 DROPPED TO 1.5L/M WHEN PULSE OX AT 100% CURRENTLY 97%. REMOVED AND WITH MONITER FOR FURTHER NEED. FEEDING HERSELF DINNER.
[2023-07-02 20:13] VITALS: BP 122/71
--- NOTE | 2023-07-03 00:03 | NUR ---
WOUND ON COCCYX REPORTED TO PM DR MARIE, FURTHER ORDERS FOR NOW TO CONTINUE REPOSITIONING PATIENT AND KEEP THE MEPILEX ON
[2023-07-03 02:54] VITALS: BP 115/65
--- NOTE | 2023-07-03 03:52 | NUR ---
SHIFT SUMMARY Patient alert & oriented x3. Pleasant and cooperative with cares. Patient only reports pain in legs, during repositioning. +2 edema noted in BLE. Wound noted on coccyx, mepilex in place. redness & small white papules noted on bilateral thighs. 1 soft BM this shift. Incontinent of bowel & bladder. IV Flagyl & Cefapime administred this shift. Vitals stable, afebrile. Will continue plan of care.
[2023-07-03] MEDS ORDERED: Ondansetron HCl 2 MG / ML 2ML Vial IV PRN (07:50)
[2023-07-03] MEDS ORDERED: Metoprolol Succinate 25 MG TABCR PO ONE (13:45)
[2023-07-03 14:41] VITALS: BP 123/71
[2023-07-03 18:05] LABS: Adenovirus F 40/41 Not Detected (NOT DETECT); Astrovirus Not Detected (NOT DETECT); Campylobacter Sp Not Detected (NOT DETECT); Cryptosporidium Not Detected (NOT DETECT); Cyclospora Cayetanensis Not Detected (NOT DETECT); E. Coli O157 Not Detected (NOT DETECT); Entamoeba Histolytica Not Detected (NOT DETECT); Enteroaggregative E. coli-EAEC Not Detected (NOT DETECT); Enteropathogenic E. coli-EPEC Not Detected (NOT DETECT); Enterotoxigenic E. coli-ETEC Not Detected (NOT DETECT); Giardia Lamblia Not Detected (NOT DETECT); Norovirus GI/GII Not Detected (NOT DETECT); Plesiomonas Shigelloides Not Detected (NOT DETECT); Rotavirus A Not Detected (NOT DETECT); Salmonella Sp Not Detected (NOT DETECT); Sapovirus Not Detected (NOT DETECT); Shiga Toxin-prod E. coli-STEC Not Detected (NOT DETECT); Shigella/Enteroin E. coli-EIEC Not Detected (NOT DETECT); Vibrio Cholerae Not Detected (NOT DETECT); Vibrio Sp Not Detected (NOT DETECT); Yersinia Enterocolitica Not Detected (NOT DETECT)
[2023-07-03 19:33] VITALS: BP 110/68
[2023-07-03] MEDS ORDERED: Cefepime HCl 1,000 MG in NS 100 ML IV SCH (21:00)
--- NOTE | 2023-07-04 04:26 | NUR ---
SHIFT SUMMARY WINNIE WAS DROWSY BUT AWAKE AT START OF SHIFT, ORIENTED X3, AND WITH FAMILY. PT SLEPT WELL T/O SHIFT, DENIES PAIN, SOB, OR CHEST PRESSURE. PT HAD ONE EPISODE OF VOMITING AFTER GAGGING ON EVENING MED. NO OTHER ACUTE EVENTS OR CHANGES IN CONDITION NOTED. PT RESTING IN BED AT A LOW POSITION WITH CALL LIGHT IN REACH.
[2023-07-04 04:39] VITALS: BP 105/61
[2023-07-04 05:41] LABS: Hematocrit 26.8 % (33.0-51.0); Hemoglobin 8.8 g/dL (11.5-16.0); Mean Corpuscular HGB 23.9 pg (26.0-34.0); Mean Corpuscular HGB Conc 32.8 g/dL (31.5-36.5); Mean Corpuscular Volume 73 fL (80-100); Mean Platelet Volume 9.4 fL (9.1-12.4); Platelet Count 710 K/mm3 (150-400); RDW Coefficient Variation 23.4 % (11.7-14.2); RDW Standard Deviation 59.7 fL (35.1-46.3); Red Blood Cell Count 3.68 M/mm3 (3.80-5.20); White Blood Cell Count 16.85 K/mm3 (4.00-11.30)
[2023-07-04 06:09] LABS: Albumin, Blood 1.1 g/dL (3.4-5.0); Anion Gap 6 mmol/L (3-11); Blood Urea Nitrogen 25 mg/dL (8-24); CO2, Blood 28 mmol/L (21-32); Calcium, Blood 7.6 mg/dL (8.5-10.1); Chloride, Blood 108 mmol/L (98-108); Creatinine, Blood 0.69 mg/dL (0.40-1.00); Glomerular Filtration Rate 83 (60-); Glucose, Blood 97 mg/dL (70-99); Magnesium, Blood 2.2 mg/dL (1.6-2.4); Phosphorus, Blood 2.7 mg/dL (2.5-4.9); Potassium, Blood 3.9 mmol/L (3.5-5.5); Sodium, Blood 138 mmol/L (136-145)
[2023-07-04 07:54] VITALS: BP 103/67
[2023-07-04] MEDS ORDERED: Metoprolol Succinate 25 MG TABCR PO SCH (09:00)
[2023-07-04 15:57] VITALS: BP 119/65
--- NOTE | 2023-07-04 16:08 | NUR ---
pt up in chair trying to eat not much appetite got her a yogurt she did well with that. We talked about her care. She is willing to try some rehab. Review of patient with critical care cns she states daughter wants to take her home. Pt very frail high risk for readmission. Pt would progably benefit from more family time and attention. Will review with family that if she declines and cannot recover. Hospice plan would machine cloth trimmer her and her family comfort and dignity.
--- NOTE | 2023-07-04 19:22 | NUR ---
SHIFT SUMMARY PT WORKED WITH THERAPIES THIS MORNING AND WAS ASSISTED UP TO RECLINER. HEAR RATE ELEVATED IN 140'S DURING ACTIVITY AND TOOK APPROX 2 MINUTES TO RECOVER BACK TO MID 80'S. LIFT USED TO RETURN PT BACK TO BED AFTER LUNCH DUE TO WEAKNESS AND PT SLEPT HARD THROUGH THE AFTERNOON. FAMILY IN ROOM THIS AFTERNOON AND EVENING. EATING SMALL AMOUNTS OF FOOD OFFERED AND ASKING FOR YOGURT.
[2023-07-04 20:43] VITALS: BP 112/67
[2023-07-05 04:15] VITALS: BP 111/58
--- NOTE | 2023-07-05 05:55 | NUR ---
SHIFT SUMMARY JUAN WAS DROWSY BUT EASILY ROUSABLE AND ORIENTED TO SELF, PLACE, AND PERSON. PT STAYED IN BED TONIGHT AND SLEPT WELL. MEPLEX ON BOTTOM CHANGED. NO ACUTE EVENTS TONIGHT NO NOTED CHANGES TO PT CONDITION. EDEMA TO BLES IMPROVING. PT RESTING IN BED AT A LOW POSITION WITH CALL LIGHT IN REACH.
[2023-07-05 07:28] VITALS: BP 119/65
[2023-07-05] MEDS ORDERED: Fluconazole 100 MG Tab PO ONE (07:40)
[2023-07-05] MEDS ORDERED: Prochlorperazine Edisylate 10 mg Vial IV PRN (10:00)
[2023-07-05 11:55] VITALS: BP 119/80
[2023-07-05] MEDS ORDERED: Metoprolol Tartrate 1 MG/ML 5 ML VIAL IV SCH (12:00)
[2023-07-05 16:08] VITALS: BP 102/67
--- NOTE | 2023-07-05 17:07 | NUR ---
SUMMARY- PT HAD X2 EPISODES OF EMESIS THIS MORNING. COMPAZINE IV HELPED TO RELIEVE THE NAUSEA. PT MOST LIKELY THREW UP HER METOPROLOL SUCCINATE PO DOSE FOR THE MORNING, SO PT WAS SUSTAINING HER HR IN THE 130-140'S. 5MG IV METOPROLOL GIVEN AFTER DR. STODDARD WAS NOTIFIED. PT'S HR WENT BACK INTO NSR IN THE 70-80'S UNLESS SHE WAS EXERTING HERSELF. PT ON RA. AAOX4. PT HAS NO APPETITE. PT WORKED WITH OT AND STOOD UP 3-4X THIS SHIFT.
[2023-07-05 18:38] VITALS: BP 105/75
--- NOTE | 2023-07-05 18:44 | NUR ---
1814- PT'S DAUGHTER (ROD) CALLED ON THE PHONE TO SPEAK WITH THIS RN. RN ANSWERED PHONE. DAUGHTER SAID SHE WAS "WAITING FOR A PHONE CALL BACK ALL DAY." THIS RN STATED, "YES, YOU WERE ON MY LIST OF TO DO'S AND I WAS GOING TO CALL YOU BACK WITHIN THE NEXT HOUR. DAUGHTER STARTED ASKING QUESTIONS REGARDING HER MOTHER'S UPDATES. THIS RN GAVE EXTENSIVE UPDATES FROM THE DAY INCLUDING THE PT'S HIDA SCAN TOMORROW AT 0830. RN EXPLAINED THE HIDA SCAN AND PROCEDURE. DAUGHTER THEN WANTED THIS RN TO SPELL OUT THE BACTERIA HER MOTHER HAD IN HER UTI. THIS RN SPELLED "LELE ALBICANS" FOR THE DAUGHTER. THE DAUGHTER ASKED WHAT IV ANTIBIOTICS THE PT WAS ON. RN INFORMED HER SHE WAS ON CEFEPIME. THE DAUGHTER THEN WANTED TO KNOW THE REASONING WHY PT HAD STOPPED FLAGYL AND WANTED SPECIFICS ON THE CULTURE AND SENSITIVITY OF THE URINE. RN TRIED EXPLAINING THIS TO THE DAUGHTER, BUT RN'S EXPLANATION WAS WOULD NOT SUFFICE. RN ADVISED DAUGHTER SPEAK WITH THE MD WHO IS CARING FOR THE PT TO SEE IF THIS WOULD HELP. MELINA INFORMED RN DR. STODDARD "NEVER CALLED ME TODAY LIKE HE WAS SUPPOSED TO." DAUGHTER ASKED WHAT WAS "BEING DONE ABOUT THE FLUID ON THE LUNGS." RN INFORMED DAUGHTER WE WERE GIVING A DIURETIC TO THE PT. DAUGHTER THEN ASKED WHEN ANOTHER CXR WAS GOING TO BE PERFORMED TO SEE IF THE FLUID WAS COMING OFF. RN STATED THIS WAS UP TO THE DOCTOR AND I COULD PASS ALONG HER CONCERNS. AFTER THE INTERROGATION FROM THE PT'S DAUGHTER REGARDING THE CARE WE ARE PROVIDING THE PT, RN STATED, "THERE IS A LEVEL OF TRUST THAT NEEDS TO HAPPEN BETWEEN THE MEDICAL PROVIDERS AND THE FAMILY WHEN PT'S ARE IN OUR CARE." THE DAUGHTER THEN STARTED SCREAMING IN THE PHONE, "YOU KNOW WHAT DEISY?! LET ME TELL YOU WHAT HAPPENED TO MY MOTHER WHILE SHE WAS AT [facility]!!!! SHE GOT SICKER AND SICKER AND WEAKER AND WEAKER WHILE SHE WAS IN THEIR CARE...SO YEAH I DO HAVE TRUST ISSUES AND I HAVE TO WATCH OVER HER LIKE THIS BECAUSE OF WHAT HAPPENED TO HER AT [facility]!!!" THIS RN TOLD THE DAUGHTER SHE NEEDED TO STOP SCREAMING ON THE PHONE. VIRGINIE THEN STATED, "YOU HAVE NO IDEA WHAT IT'S LIKE DO YOU?!" THIS RN THEN APOLOGIZED FOR [facility]'S EXPERIENCE, BUT INFORMED HER THAT HER MOTHER WAS NOT AT [facility] ANYMORE AND THIS RN WAS DOING THE BEST SHE COULD AT ANSWERING HER QUESTIONS. THIS RN INFORMED VIRGINIE THAT 15 MINUTES WAS SPENT UPDATING THE PT'S GRANDDAUGHTER TODAY IN PERSON WITH ANSWERING THE EXACT SAME QUESTIONS AND THAT IT IS CUSTOMARY THAT THE HOSPITAL HAS A POINT OF CONTACT TO HELP WITH COMMUNICATION AND THE RESPECT OF TIME TO STAFF. VIRGINIE STARTED YELLING AGAIN ON THE PHONE STATING SHE LIVED IN [place], ETC. THIS RN INFORMED VIRGINIE THAT SHE WILL NOT TOLERATE VERBAL HARRASSMENT AND SCREAMING OVER THE PHONE, AND IF IT CONTINUED SHE WOULD BE HANGING UP THE PHONE. VIRGINIE THEN SAID SHE WOULD CALM DOWN. VIRGINIE ASKED WHAT WAS BEING DONE ABOUT THE WOULD ON HER MOTHER'S BOTTOM. THIS RN INFORMED VIRGINIE THAT IT WAS A STAGE 2 PRESSURE ULCER AND THAT ZINC OINTMENT WAS PLACED ON IT ALONG WITH AN ALLEVYN-PT WAS ALSO BEING REPOSITIONED TO HELP WITH SKIN INTEGRITY. VIRGINIE WAS SHOCKED THAT THE "CLOSED WOUND HAD NOW BECOME WORSE." THE PHONE CALL ENDED BY VIRGINIE STATING, "I'LL JUST CALL MY DAUGHTER SINCE YOU SUPPOSEDLY TOLD HER EVERYTHING ALREADY TODAY." VIRGINIE THEN HUNG UP THE PHONE WITHOUT SAYING ANYTHING ELSE. JAYSHREE OLIVAS NOTIFIED AVIS DAVE ABOUT PHONE CALL.
[2023-07-05 19:52] VITALS: BP 104/54
[2023-07-06] VITALS (7 sets, daily range): BP systolic 98–128; BP diastolic 49–99
--- NOTE | 2023-07-06 04:55 | NUR ---
SPOKE WITH CHARRUSSELTES DAUGHTER BETTIE MORGAN SANTIAGO. SHE CAN BE REACHED AT . SHE WOULD VERY MUCH LIKE A CALL FROM HER HOSPITALIST TODAY.
--- NOTE | 2023-07-06 05:04 | NUR ---
PATIENT IN BED THROUGHOUT SHIFT. HAD A LARGE INCONTINENT BM, GREENISH AND SOFT. TO HAVE HIDA SCAN TODAY. C/O PAIN TO BOTH HEELS, WHICH ARE DISCOLORING AND MUSHY. PLACED FOAM HEEL SLIPPERS ON PATIENT AND FLOATED HEELS. PATIENT C/O 5/10 PAIN TO HEELS BEFORE THEY WERE FLOATED, WAS WILLING TO TRY POSITION CHANGE TO TAKE PRESSURE OFF, WHICH WAS EFFECTIVE. PATIENT ACCEPTED WATER AND GATORADE IN SMALL AMOUNTS WHEN OFFERED, NO EMESIS WITH FLUID OR WITH EVENING MEDICATIONS. NPO FOR LABS AND HIDA SCAN. BANDAGE TO COCCYX WAS SOILED DURING BOWEL MOVEMENT, SO WAS CHANGED. STAGE TWO PRESSURE ULCER WITH SMALL MACERATION ON RIGHT SIDE, LESS THAN 0.25 INCH. NEW BANDAGE APPLIED. DAUGHTER IN [place] REQUESTED TELEPHONE CALL FROM RN, WHICH WAS MADE BY JAYSHREE TANNER. DAUGHTER (VIRGINIE) WOULD LIKE PT'S DOCTOR TO CALL HER.
[2023-07-06 05:41] LABS: Hematocrit 28.8 % (33.0-51.0); Hemoglobin 9.3 g/dL (11.5-16.0); Mean Corpuscular HGB 24.2 pg (26.0-34.0); Mean Corpuscular HGB Conc 32.3 g/dL (31.5-36.5); Mean Corpuscular Volume 75 fL (80-100); Mean Platelet Volume 9.4 fL (9.1-12.4); Platelet Count 691 K/mm3 (150-400); RDW Coefficient Variation 23.7 % (11.7-14.2); RDW Standard Deviation 62.3 fL (35.1-46.3); Red Blood Cell Count 3.84 M/mm3 (3.80-5.20); White Blood Cell Count 15.74 K/mm3 (4.00-11.30)
[2023-07-06 06:19] LABS: Magnesium, Blood 2.2 mg/dL (1.6-2.4)
[2023-07-06 06:23] LABS: Albumin, Blood 1.2 g/dL (3.4-5.0); Albumin/Globulin Ratio 0.3 (0.8-1.8); Bilirubin, Total 0.3 mg/dL (0.1-1.0); Bun/Creatinine Ratio 37.5 (12.0-20.0); Calcium, Blood 7.5 mg/dL (8.5-10.1); Creatinine, Blood 0.69 mg/dL (0.40-1.00); Globulin, Blood 3.7 g/dL (2.2-4.0); Phosphorus, Blood 2.4 mg/dL (2.5-4.9); Potassium, Blood 3.7 mmol/L (3.5-5.5); Total Protein, Blood 4.9 g/dL (6.4-8.2)
[2023-07-06] MEDS ORDERED: Metoprolol Succinate 50 MG TABCR PO SCH (17:10)
--- NOTE | 2023-07-06 17:28 | NUR ---
SPOKE TO DR STODDARD RE BP. ORDERS FOR BOLUS 500
[2023-07-06] MEDS ORDERED: NS 500 ML IV ONE (17:30)
[2023-07-06] MEDS ORDERED: NS 500 ML IV SCH (18:00)
--- NOTE | 2023-07-06 19:45 | NUR ---
PT PLEASANT TODAY. FAMILY IN TO SEE PT AND DR TODAY. DR WASHBURN IN TO SEE PT THIS AFTERNOON RE TUSHAR. NOT EXPECTING SURGERY AT THIS TIME. OKAYED TO EAT. DIET RESTARTED. DID EAT A HALF BURGER AND SHAKE FROM FAMILY THIS AFT. ALSO B/P SOFT THIS AFT. 500 BOLUS ORDERED AND STARTED. PT IS EATING, DR CHANGED METOPROLOL TO PO. PT STATES REMOVED 5 FEET COLON IN MAY. DID HAVE LOOSE STOOLS THIS DAY. PLACING CREAM ON SPOTS ON BOTTOM. NO OTHER CONCERNS NOTED. BED IN LOW POSITION, CALL LITE IN REACH, BED ALARM ON FOR SAFETY. CALLS APPROP
[2023-07-07] MEDS ORDERED: Miconazole Nitrate 2% 85 GM PWD TOP PRN (02:00)
[2023-07-07 02:33] VITALS: BP 120/64
--- NOTE | 2023-07-07 04:45 | NUR ---
SHIFT SUMMARY 88 YR F ADMITTED ON 07/02/23. FULL CODE. NO ACUTE CHANGES THIS SHIFT. NO C/O PAIN OR DISCOMFORT THIS SHIFT. PER CLIENT SUCCESS MANAGER, PT'S HR IS NSR LOW 80'S. IV IN LEFT SHOULDER IS PATENT AND INFUSING WELL W/ NO DISCOMFORT. PUREWIK WAS PLACED FOR PT COMFORT DUE TO GROIN AREA BEING RED AND SORE. NYSTATIN POWDER WAS ORDERED ALSO. PT HAS NOT SHOWN INTERES IN ENGAGING IN CONVERSATION AND HAS MOSTLY SLEPT THIS SHIFT. WILL CONTINUE TO MONITOR.
--- NOTE | 2023-07-07 06:03 | NUR ---
PT REFUSED BLOOD DRAW BY CUSTOMER SERVICE MANAGER THIS A.M. PT STATED "NO BLOOD DRAW" A COUPLE OF TIMES AND WHEN ASKED BY TECH IF SHE WAS REFUSING, PT STATED "YES. I AM REFUSING TO HAVE MY BLOOD DRAWN". APPROX 0540.
[2023-07-07 07:25] VITALS: BP 124/66
--- NOTE | 2023-07-07 11:02 | NUR ---
0800 TELE CALLED. STATES H/R UP 130-140. BEEN MOVING UP THIS AM. METOPROLOL PO GIVEN. 0930 H/R BEEN TRENDING BACK DOWN. NOW AT 67
[2023-07-07] MEDS ORDERED: Fluconazole 100 MG Tab PO ONE (14:55)
[2023-07-07 16:19] VITALS: BP 112/68
[2023-07-07 16:46] LABS: Hematocrit 29.6 % (33.0-51.0); Hemoglobin 9.7 g/dL (11.5-16.0); Mean Corpuscular HGB 24.6 pg (26.0-34.0); Mean Corpuscular HGB Conc 32.8 g/dL (31.5-36.5); Mean Corpuscular Volume 75 fL (80-100); Mean Platelet Volume 9.3 fL (9.1-12.4); Platelet Count 802 K/mm3 (150-400); RDW Coefficient Variation 24.2 % (11.7-14.2); Red Blood Cell Count 3.95 M/mm3 (3.80-5.20); White Blood Cell Count 15.83 K/mm3 (4.00-11.30)
--- NOTE | 2023-07-07 16:49 | NUR ---
PT PLEASANT TODAY. STATES FEELS SOME BETTER TODAY. NEW POWERGLIDE PLACED TODAY. DRAWS BLOOD FOR LABS. NO C/O PAIN TODAY. FAMILY IN TO VISIT TODAY. NO NEW CONCERNS NOTED TO ME FROM FAMILY. PACED MEPILEX ON BOTTON TO ASSIST IN HEALING. DID HAVE LOOSE STOOL THIS AM. H/R UP THIS AM PRIOR TO GIVING METOPROLOL. CAME BACK DOWN TO NORMAL AFTER EFFECTIVE. NO NEW CONCERNS NOTED. BED IN LOW POSITION, CALL LITE IN REACH, CALLS APPROP
[2023-07-07 17:03] LABS: Albumin, Blood 1.3 g/dL (3.4-5.0); Anion Gap 7 mmol/L (3-11); Blood Urea Nitrogen 26 mg/dL (8-24); Bun/Creatinine Ratio 34.4 (12.0-20.0); CO2, Blood 26 mmol/L (21-32); Calcium, Blood 7.4 mg/dL (8.5-10.1); Chloride, Blood 108 mmol/L (98-108); Creatinine, Blood 0.76 mg/dL (0.40-1.00); Glomerular Filtration Rate 75 (60-); Glucose, Blood 148 mg/dL (70-99); Magnesium, Blood 1.9 mg/dL (1.6-2.4); Potassium, Blood 3.3 mmol/L (3.5-5.5); Sodium, Blood 138 mmol/L (136-145)
[2023-07-07 19:18] VITALS: BP 120/73
[2023-07-08 02:54] VITALS: BP 128/63
[2023-07-08 05:55] LABS: Hematocrit 26.5 % (33.0-51.0); Hemoglobin 8.7 g/dL (11.5-16.0); Mean Corpuscular HGB 24.4 pg (26.0-34.0); Mean Corpuscular HGB Conc 32.8 g/dL (31.5-36.5); Mean Corpuscular Volume 74 fL (80-100); Mean Platelet Volume 9.1 fL (9.1-12.4); Platelet Count 669 K/mm3 (150-400); RDW Coefficient Variation 24.3 % (11.7-14.2); RDW Standard Deviation 62.3 fL (35.1-46.3); Red Blood Cell Count 3.57 M/mm3 (3.80-5.20); White Blood Cell Count 13.71 K/mm3 (4.00-11.30)
[2023-07-08 06:16] LABS: Albumin, Blood 1.2 g/dL (3.4-5.0); Anion Gap 5 mmol/L (3-11); Blood Urea Nitrogen 25 mg/dL (8-24); CO2, Blood 29 mmol/L (21-32); Calcium, Blood 7.5 mg/dL (8.5-10.1); Chloride, Blood 110 mmol/L (98-108); Creatinine, Blood 0.69 mg/dL (0.40-1.00); Glomerular Filtration Rate 83 (60-); Glucose, Blood 95 mg/dL (70-99); Magnesium, Blood 1.9 mg/dL (1.6-2.4); Phosphorus, Blood 2.3 mg/dL (2.5-4.9); Potassium, Blood 3.4 mmol/L (3.5-5.5); Sodium, Blood 141 mmol/L (136-145)
[2023-07-08 07:06] VITALS: BP 128/62
--- NOTE | 2023-07-08 08:00 | NUR ---
INITIAL ASSESSMENT: Patient is resting with eyes closed, resp E/U. She wakes easily with verbal stimuli. She is oriented to self, location, and event-she is a little fuzzy on the date. Her son is at the bedside. She denies pain at this time. HRR, SR per [employer]. LS DIM in the bases, biox is 97% on RA. BT+, she has a healing abdominal incision. Attends in place and purewick, her attends are changed, she had a loose green/brown BM. PPP, she has 2+ pitting edema to BLE. She is C/O some left heel pain, mepilex placed and heels floated on pillows. Patient is assisted to sit at the edge of the bed, we attepted to get her to the chair, she was too weak. She was able to sit at the edge of the bed for about an hour before having to lie back down. While she is up at the edge of the bed her heart rate is ranging from [id number] is asymptomatic.
--- NOTE | 2023-07-08 08:07 | NUR ---
SHIFT SUMMARY PT IS A&OX3, OFF ON DATE, FORGETFUL AT TIMES, ALSO [place]. VSS ON RA. PER TELEMETRY PT IS NSR @ 80. C/O PAIN IN HER RIGHT HIP AND BUTTOCKS, REPOSITIONED. TOLERATING A MINCED AND MOIST DIET, POOR APPETITE. TAKES PILLS WHOLE, ONE AT A TIME IN APPLESAUCE. X2 MAX ASSIST, NOOB THIS SHIFT. WICKING SYSTEM DRAINING YELLOW URINE. INCONTINENT OF LIQUID BM X1 THIS SHIFT, BRIEF CHANGED. ALESIA AREA EXCORIATED, BARRIER CREAM APPLIED, MEPLEX TO COCCYX REPLACED. BED IN LOWEST POSITION, CALL LIGHT WITHIN REACH. FREQUENT ROUNDING.
[2023-07-08] MEDS ORDERED: Potassium Chloride 40 MEQ in NS 250 ML IV ONE (15:35)
[2023-07-08 15:44] VITALS: BP 120/57
--- NOTE | 2023-07-08 19:30 | NUR ---
SUMMARY: Patient is alert and oriented x3, she has had minimal C/O pain in her left heel-this is thought to be due to pressure. Patient has had BLE elevated on pillows. HRR, she has been SR in the 80s while at rest, she was dangling on the edge of the bed this am for about an hour her heart rate at times would touch into the 120s-150s, patient was asymptomatic. LS Dim in the bases, Biox is 97% on RA. BT+, she had several loose brownish,green stool, she is incontinent with attends in place. She had a purewick in place for most of the shift with a few incontinent voids. Son at the bedside T/O the shift assisting with repositioning. She has a pressure ulcer to her coccyx with a Mepilex in place. No acute changes this shift, report given to Nahun RODRIGUEZ RN.
[2023-07-08 20:45] VITALS: BP 127/62
[2023-07-09 04:56] VITALS: BP 154/91
[2023-07-09 06:13] LABS: Hematocrit 27.9 % (33.0-51.0); Hemoglobin 9.3 g/dL (11.5-16.0); Mean Corpuscular HGB Conc 33.3 g/dL (31.5-36.5); Mean Corpuscular Volume 75 fL (80-100); Mean Platelet Volume 9.3 fL (9.1-12.4); Platelet Count 739 K/mm3 (150-400); RDW Coefficient Variation 24.7 % (11.7-14.2); RDW Standard Deviation 63.3 fL (35.1-46.3); Red Blood Cell Count 3.72 M/mm3 (3.80-5.20); White Blood Cell Count 19.74 K/mm3 (4.00-11.30)
[2023-07-09 06:37] LABS: Albumin, Blood 1.4 g/dL (3.4-5.0); Albumin/Globulin Ratio 0.4 (0.8-1.8); Bilirubin, Total 0.2 mg/dL (0.1-1.0); Bun/Creatinine Ratio 36.8 (12.0-20.0); Calcium, Blood 7.8 mg/dL (8.5-10.1); Creatinine, Blood 0.71 mg/dL (0.40-1.00); Phosphorus, Blood 2.3 mg/dL (2.5-4.9); Total Protein, Blood 5.4 g/dL (6.4-8.2)
[2023-07-09 07:27] VITALS: BP 176/73
--- NOTE | 2023-07-09 18:49 | NUR ---
SHIFT SUMMARY PATIENT DENIES PAIN TODAY, TURNED Q 2 HOURS BY STAFF, HEELS FLOATED. PATIENT ATE WELL TODAY WITH NO NAUSEA. SHE HAD 2 ENSURE CLEAR, 2 YOGURT AND SOME FRUIT WELL TEA AND WATER. SHE IS TOLERATING THESE ITEMS WELL. ORIENTEDX3. SON CASH AT BEDSIDE. BED IN LOW POSITION, CALL LIGHT IN REACH. PATIENT ABLE TO MAKE NEEDS KNOWN.
[2023-07-09 20:07] VITALS: BP 141/70
[2023-07-09] MEDS ORDERED: Acetaminophen 500 MG Tab PO PRN (20:40)
[2023-07-10 03:31] VITALS: BP 142/74
[2023-07-10 06:47] LABS: BASOPHILS ABSOLUTE AUTO 0.08 K/mm3 (0.00-0.23); BASOPHILS PERCENT AUTO 1 % (0-2); EOSINOPHILS ABSOLUTE AUTO 0.27 K/mm3 (0.00-0.68); EOSINOPHILS PERCENT AUTO 2 % (0-6); Hematocrit 27.1 % (33.0-51.0); IMMATURE GRAN ABSOLUTE AUTO 0.28 K/mm3 (0.00-0.10); IMMATURE GRAN PERCENT AUTO 2 % (0-1); LYMPHOCYTES ABSOLUTE AUTO 0.67 K/mm3 (0.84-5.20); LYMPHOCYTES PERCENT AUTO 4 % (21-46); MONOCYTES ABSOLUTE AUTO 1.03 K/mm3 (0.16-1.47); MONOCYTES PERCENT AUTO 6 % (4-13); Mean Corpuscular HGB 24.9 pg (26.0-34.0); Mean Corpuscular HGB Conc 33.2 g/dL (31.5-36.5); Mean Corpuscular Volume 75 fL (80-100); Mean Platelet Volume 9.4 fL (9.1-12.4); NEUTROPHILS ABSOLUTE AUTO 15.31 K/mm3 (1.96-9.15); NEUTROPHILS PERCENT AUTO 87 % (41-73); Platelet Count 648 K/mm3 (150-400); RDW Coefficient Variation 25.1 % (11.7-14.2); RDW Standard Deviation 62.5 fL (35.1-46.3); Red Blood Cell Count 3.61 M/mm3 (3.80-5.20); White Blood Cell Count 17.64 K/mm3 (4.00-11.30)
[2023-07-10 07:09] LABS: Albumin, Blood 1.3 g/dL (3.4-5.0); Albumin/Globulin Ratio 0.4 (0.8-1.8); Bilirubin, Total 0.3 mg/dL (0.1-1.0); Bun/Creatinine Ratio 38.1 (12.0-20.0); Calcium, Blood 7.8 mg/dL (8.5-10.1); Creatinine, Blood 0.66 mg/dL (0.40-1.00); Globulin, Blood 3.7 g/dL (2.2-4.0); Magnesium, Blood 1.8 mg/dL (1.6-2.4); Potassium, Blood 4.2 mmol/L (3.5-5.5)
--- NOTE | 2023-07-10 08:25 | NUR ---
SHIFT SUMMARY PT IS A&OX3, OFF ON DATE. VSS ON RA. PER TELE MONITOR PT IS NSR IN THE 80'S. DENIES PAIN. NO ACUTE CHANGES OR EVENTS THIS SHIFT. DRINKING AN ENSURE, STILL HAS A POOR APPETITE. X2 ASSIST TO CHANGE BRIEF OR POSITIONS. NOOB THIS SHIFT. INCONTINENT OF BOWEL AND BLADDER, BRIEF IN PLACE. SKIN REMAINS EXCORIATED IN ALESIA AREA, CREAM APPLIED. BLE +3 EDEMA, ELEVATED ON PILLOWS. BED IN LOWEST POSITION, CALL LIGHT WITHIN REACH.
[2023-07-10 08:52] VITALS: BP 150/81
[2023-07-10] MEDS ORDERED: Metoprolol Succinate 50 MG TABCR PO SCH (09:00)
[2023-07-10] MEDS ORDERED: Medihoney Topical 44 ML TOP SCH (13:40)
[2023-07-10 15:13] VITALS: BP 133/78
--- NOTE | 2023-07-10 16:20 | NUR ---
Spoke with pt's daughter regarding pt's code status, but she requests we discuss it tomorrow with the patient instead of today, as she reports pt very tired this afternoon.
[2023-07-10 18:50] LABS: International Normalized Ratio 1.31; Prothrombin Time Results 13.5 Sec (9.7-11.5)
[2023-07-10 19:49] VITALS: BP 117/67
[2023-07-10] MEDS ORDERED: Dose Adjust by Pharmacy XX STA (20:17)
[2023-07-10] MEDS ORDERED: Heparin Sodium 5000 Units/ML 1ML MDV IV ONE (20:20)
--- NOTE | 2023-07-10 20:45 | NUR ---
SHIFT SUMMARY PATIENT INCREASING IN APPETITE, DENIES PAIN, FAMILY PRESENT IN ROOM ALL DAY AND HELP COMMUNICATE HER NEEDS. DR QUINN MADE AWARE OF PRESSURE ULCERS ON SACRUM, MEDIHONEY AND BORDERED FOAM ORDERED. PATIENT GOT UP WITH OT THIS AFTERNOON. RESTING IN BED CURRENTLY.
[2023-07-10] MEDS ORDERED: Heparin Sodium,Porcine/0.5 NS 500 ML IV SCH (21:00)
[2023-07-11 02:02] VITALS: BP 136/69
--- NOTE | 2023-07-11 04:32 | NUR ---
Shift Summary Patient is a 88 year old female admitted with RLL pneumonia. She also has diagnosis of Sepsis, CHF, Atrial Flutter, Abnormal HIDA scan, CAD, and right pleural effusion. She is alert and oriented x 3. Pleasant and cooperative with care. Patient was repositioned side to side every two hours due to skin breakdown on her coccyx. The area is red with two small open areas noted. Wound was cleaned and Medihoney applied. Covered with a silicone bordered dressing. She recieved a heparin bolus of 5800 units and was started on a heparin drip at 26.3 ml/hr. (18 u/hr) Patient is going to have a thorocentesis on Saturday. She is on tele in a sinus rhythm at 61. Bed is in low position with call light in reach. Side rails up x 2. No distress noted.
[2023-07-11] MEDS ORDERED: Dose Adjust by Pharmacy XX STA ×2 (06:25→14:40)
--- NOTE | 2023-07-11 06:35 | NUR ---
APTT OF 139 REPORTED TO PHARMACY. THEY SAID TO STOP HEPARIN DRIP FOR 1 HOUR. STOPPED AT 6:30 AM. IT IS TO BE STARTED BACK AT 7:30 AM AT 15U/KG/HR (21.9MLS/HR).
[2023-07-11 08:24] LABS: BASOPHILS PERCENT AUTO 1 % (0-2); EOSINOPHILS ABSOLUTE AUTO 0.36 K/mm3 (0.00-0.68); EOSINOPHILS PERCENT AUTO 2 % (0-6); Hematocrit 27.7 % (33.0-51.0); Hemoglobin 8.9 g/dL (11.5-16.0); IMMATURE GRAN ABSOLUTE AUTO 0.26 K/mm3 (0.00-0.10); IMMATURE GRAN PERCENT AUTO 2 % (0-1); LYMPHOCYTES PERCENT AUTO 5 % (21-46); MONOCYTES ABSOLUTE AUTO 0.89 K/mm3 (0.16-1.47); MONOCYTES PERCENT AUTO 6 % (4-13); Mean Corpuscular HGB 24.8 pg (26.0-34.0); Mean Corpuscular HGB Conc 32.1 g/dL (31.5-36.5); Mean Corpuscular Volume 77 fL (80-100); NEUTROPHILS ABSOLUTE AUTO 13.75 K/mm3 (1.96-9.15); NEUTROPHILS PERCENT AUTO 85 % (41-73); Platelet Count 619 K/mm3 (150-400); RDW Coefficient Variation 25.7 % (11.7-14.2); RDW Standard Deviation 65.5 fL (35.1-46.3); Red Blood Cell Count 3.59 M/mm3 (3.80-5.20); White Blood Cell Count 16.16 K/mm3 (4.00-11.30)
[2023-07-11 08:55] LABS: Albumin, Blood 1.3 g/dL (3.4-5.0); Albumin/Globulin Ratio 0.3 (0.8-1.8); Bilirubin, Total 0.3 mg/dL (0.1-1.0); Bun/Creatinine Ratio 37.9 (12.0-20.0); Calcium, Blood 7.8 mg/dL (8.5-10.1); Creatinine, Blood 0.66 mg/dL (0.40-1.00); Globulin, Blood 3.8 g/dL (2.2-4.0); Potassium, Blood 3.8 mmol/L (3.5-5.5); Total Protein, Blood 5.1 g/dL (6.4-8.2)
[2023-07-11 09:48] VITALS: BP 137/65
[2023-07-11 14:50] VITALS: BP 133/68
--- NOTE | 2023-07-11 15:18 | NUR ---
REVIEW CODE STATUS / GOALS OF CARE Notified by Bushra COON that pt's dtr, Jacqueline has requested [facility] and dtr has already contacted [facility] with a self referral. [facility], Destiney Cheng here to belen pt for admission. This PC RN accompanied Destiney Cheng talk with pt and her dtr. Pt is fatigued post PT/OT this afternoon. She is oriented x3 and able to make her needs known. Pt is scheduled for diagnostic thoracentesis tomorrow 07/12/23. Pt and family are not ready to make a decision about hospice care. Dtr expresses wanting to see what the results from the thoracentesis are and if there would be a need for treatment. This PC RN and [facility] explained pt would not qualify for hospice if she is seeking currative care. PC will remain available to review GOC after results from thoracentesis are available. Code status reviewed and new POLST form completed to reflect DNR with limited medical intervention. Received verbal order for DNR and POLST form signed by Dr. Matthews. Front Office Java Developer and Primary RN updated.
--- NOTE | 2023-07-11 16:02 | NUR ---
Copy of signed POLST sent to medical records, faxed to POLST registry, placed on physical chart. Original copy of POLST and a photocopy provided to pt/dtr.
--- NOTE | 2023-07-11 16:35 | NUR ---
SHIFT SUMMARY: PT IS AN A&OX4/2 PERSON ASSIST/LIFT FOR FATIGUE/WEAKNESS HERE FOR RLL PNEUMONIA. SHE ALSO HAD POSITIVE SVT ON THE L AND IS ON A HEPARIN DRIP. SHE IS UNDERGOING A THORANCENTESIS 07/12/23; UNSURE OF EXACT TIME. US RAD WILL NOTIFY IN THE A.M. THE HEPARIN DRIP WILL NEED TO BE STOPPED 3-6 HOURS PRIOR TO PROCEDURE. PATIENT FAMILY AT BEDSIDE ENTIRE SHIFT; FAMILY ASSIST IN CARE AND HELP MAKE PATIENT'S NEEDS KNOWN. SHE IS CURRENTLY IN BED, CALL LIGHT WITHIN REACH, NO SIGNS OR SYMPTOMS OF DISTRESS. PLAN OF CARE ONGOING.
[2023-07-11 19:04] VITALS: BP 120/61
[2023-07-11] MEDS ORDERED: Apixaban 5 MG Tab PO SCH (21:00)
[2023-07-12 03:35] VITALS: BP 136/70
[2023-07-12 03:40] LABS: BASOPHILS ABSOLUTE AUTO 0.09 K/mm3 (0.00-0.23); BASOPHILS PERCENT AUTO 1 % (0-2); EOSINOPHILS ABSOLUTE AUTO 0.36 K/mm3 (0.00-0.68); EOSINOPHILS PERCENT AUTO 3 % (0-6); Hematocrit 26.3 % (33.0-51.0); Hemoglobin 8.6 g/dL (11.5-16.0); IMMATURE GRAN ABSOLUTE AUTO 0.23 K/mm3 (0.00-0.10); IMMATURE GRAN PERCENT AUTO 2 % (0-1); LYMPHOCYTES ABSOLUTE AUTO 0.83 K/mm3 (0.84-5.20); LYMPHOCYTES PERCENT AUTO 7 % (21-46); MONOCYTES ABSOLUTE AUTO 0.82 K/mm3 (0.16-1.47); MONOCYTES PERCENT AUTO 7 % (4-13); Mean Corpuscular HGB 24.8 pg (26.0-34.0); Mean Corpuscular HGB Conc 32.7 g/dL (31.5-36.5); Mean Corpuscular Volume 76 fL (80-100); Mean Platelet Volume 9.7 fL (9.1-12.4); NEUTROPHILS ABSOLUTE AUTO 9.49 K/mm3 (1.96-9.15); NEUTROPHILS PERCENT AUTO 80 % (41-73); Platelet Count 609 K/mm3 (150-400); RDW Coefficient Variation 26.2 % (11.7-14.2); Red Blood Cell Count 3.47 M/mm3 (3.80-5.20); White Blood Cell Count 11.82 K/mm3 (4.00-11.30)
[2023-07-12 04:12] LABS: Albumin, Blood 1.3 g/dL (3.4-5.0); Albumin/Globulin Ratio 0.4 (0.8-1.8); Bilirubin, Total 0.3 mg/dL (0.1-1.0); Bun/Creatinine Ratio 38.2 (12.0-20.0); Calcium, Blood 7.7 mg/dL (8.5-10.1); Creatinine, Blood 0.63 mg/dL (0.40-1.00); Globulin, Blood 3.7 g/dL (2.2-4.0); Potassium, Blood 3.5 mmol/L (3.5-5.5)
[2023-07-12] MEDS ORDERED: Dose Adjust by Pharmacy XX STA ×2 (04:16→18:55)
--- NOTE | 2023-07-12 04:34 | NUR ---
SHIFT SUMMARY PATIENT IS A 88 YEAR OLD FEMALE ADMITTED WITH RLL PNEUMONIA. SHE ALSO HAS DIAGNOSIS OF SEPSIS, CHF, ATRIAL FLUTTER, CAD, SVT OF THE LEFT SPHINENOUS VEIN. SHE IS ALERT AND ORIENTED X 4. RESPIRATIONS ARE REGULAR AND UNLABORED. PATIENT IS ON ROOM AIR. DIARRHEA HAS IMPROVED ON THIS SHIFT FROM THE PRIOR SAP BW ARCHITECT. SHE IS ON A HEPARIN DRIP AT 23.4 ML/HR. DAUGHTER AT BEDSIDE MOST OF THE NIGHT. BED IS IN LOW POSITION WITH CALL LIGHT IN REACH. PATIENT IS TO HAVE A THOROCENTESIS TODAY.
[2023-07-12 07:27] VITALS: BP 141/65
[2023-07-12] MEDS ORDERED: MANUKA HONEY TOP SCH (09:00)
[2023-07-12 11:24] LABS: Automated BF WBC Count 0.164 K/mm3 (0-999)
[2023-07-12 11:40] LABS: Body Fluid WBC Count 164 /mm3 (0-999)
[2023-07-12 11:46] LABS: Albumin, Body Fluid 0.9 g/dL; Glucose, Body Fluid 89 mg/dL; Lactate Dehydrogenase, Body Fl 100 U/L; Protein, Body Fluid 2.5 g/dL
[2023-07-12 11:51] LABS: RBC Count, Body Fluid 633 /mm3 (0-0)
[2023-07-12 11:52] LABS: Appearance, Body Fluid Hazy (Clear); Color, Body Fluid Yellow (None-Yellow)
--- NOTE | 2023-07-12 12:13 | NUR ---
PATIENT COMPLETED AND RETURNED FROM HER THORANCENTESIS AROUND 1030. CONSULTED WITH DR. MARTIN ON WHEN TO RESUME HEPARIN DRIP. PER DR. MARTIN WAIT AN HOUR PRI0R TO STARTING. 1 HOUR TIMER SET. THROANCENTESIS SITE ACCESSED; BANDAGE SATURATED, BUT NO ACTIVE BLEEDING. BANDAGE CHANGED AND HEPARIN DRIP RESUMED AT ORDERED RATE; PHARMACY NOTIFIED.
[2023-07-12 12:17] LABS: Total Cell Count, Body Fluid 100
[2023-07-12 12:19] LABS: pH, Body Fluid 7.9
--- NOTE | 2023-07-12 15:02 | NUR ---
Supportive Visit Post Thoracentesis Met with pt and her dtr in pt's room. Pt is lying supine at 45 degrees. No S/Sx of distress noted. Pt is able to make needs known. Dtr inquired about thoracentesis results. This PC RN advised apx 1000 ml fluid was removed during thoracentesis and rest results are not yet available. Theraputic listening provided to dtr re: pt's journey over the last couple of years. Pt was living independently prior to hemicolectomy this May 2023. Dtr reports while pt was at [facility] she had a sharp decline resulting in this visit. Will attempt GOC visit on Saturday07/15/23 if pt is still in the hospital. PC will remain available as needed. at [facility]
[2023-07-12 16:20] VITALS: BP 128/68
--- NOTE | 2023-07-12 17:28 | NUR ---
SHIFT SUMMARY: PATIENT UNDERWENT HER THORANCENTESIS TODAY AND REPORTED THAT 1 L WAS REMOVED. NO POST PROCEDURAL CHANGES OR EVENTS. PATIENT HAS BEEN FATIGUED MOST OF THE DAY AND HAS HAD A LOT OF FAMILY VISITORS. SHE CONTINUES TO BE A 2 PERSON ASSIST WITH CARE. SHE CONTINUES TO BE INCONTIENT OF BOTH URINE AND STOOL; AND ISN'T AWARE WHEN SHE HAS A BOWEL MOVEMENT. HER BMS ARE SOFT; PT DENIES GI UPSET. SHE IS IN BED RESTING; NO SIGNS OR SYMPTOMS OF DISTRESS, FAMILY AT BEDSIDE, CALL LIGHT WITHIN REACH, PLAN OF CARE ONGOING.
[2023-07-12 19:39] VITALS: BP 122/54
[2023-07-13 02:55] LABS: Hematocrit 25.1 % (33.0-51.0); Hemoglobin 8.2 g/dL (11.5-16.0); Mean Corpuscular HGB 24.8 pg (26.0-34.0); Mean Corpuscular HGB Conc 32.7 g/dL (31.5-36.5); Mean Corpuscular Volume 76 fL (80-100); Mean Platelet Volume 9.5 fL (9.1-12.4); Platelet Count 553 K/mm3 (150-400); RDW Coefficient Variation 26.1 % (11.7-14.2); RDW Standard Deviation 67.2 fL (35.1-46.3); Red Blood Cell Count 3.31 M/mm3 (3.80-5.20); White Blood Cell Count 11.08 K/mm3 (4.00-11.30)
[2023-07-13 03:15] LABS: Bun/Creatinine Ratio 36.9 (12.0-20.0); Calcium, Blood 7.3 mg/dL (8.5-10.1); Creatinine, Blood 0.57 mg/dL (0.40-1.00); Potassium, Blood 3.5 mmol/L (3.5-5.5)
[2023-07-13 04:06] VITALS: BP 139/69
--- NOTE | 2023-07-13 06:12 | NUR ---
SHIFT SUMMARY PATIENT IS AN 88 YEAR OLD FEMALE ADMITTED WITH RLL PNEUMONIA. SHE HAD A THORACENTESIS DONE ON DAY SHIFT YESTERDAY. SHE STATED THAT SHE DID NOT FEEL MUCH DIFFERENT SINCE HAVING IT DONE. PATIENT IS ALERT AND ORIENTED. HER SATS ARE IN THE 90'S ON ROOM AIR. SHE IS ON TELE IN A SINUS RHYTHM AT 60. SHE IS ON A HEPARIN DRIP AT 24.8 ML/HR (17U/KG/HR). SHE IS INCONTINENT OF URINE AND STOOL. SHE WAS REPOSITIONED THROUGHOUT THE NIGHT TO HELP PREVENT SKIN BREAKDOWN. BED IS IN LOW POSITION WITH CALL LIGHT IN REACH.
[2023-07-13 07:40] VITALS: BP 126/57
[2023-07-13] MEDS ORDERED: Apixaban 5 MG Tab PO SCH (13:00)
[2023-07-13 13:28] LABS: Percent Saturation 25.9 % (15.0-50.0)
[2023-07-13] MEDS ORDERED: Folic Acid 400 MCG TAB PO SCH (14:00)
--- NOTE | 2023-07-13 17:59 | NUR ---
SUMMARY- AAOX4, X2 MAX ASSIST TO SIT ON THE EDGE OF THE BED AND DANGLE FEET. PT WAS ASKED TO TRANSFER TO THE RECLINER BUT REFUSED, SO AFTER ASKING MULTIPLE TIMES PT FINALLY AGREED TO SIT ON THE EDGE OF THE BED. PT SAT UP FOR 25 MINS WITH THE FAMILY AT BEDSIDE. NO COMPLAINTS OF PAIN. COCCYX DRESSING WAS CHANGED TWICE THIS SHIFT. PT HAD X2 EPISODES OF LOOSE STOOLS. PT IS UNMOTIVATED TO MOVE ANY PART OF HER BODY.
[2023-07-13] MEDS ORDERED: Atorvastatin 40 MG Tab PO SCH (18:00)
[2023-07-13 19:43] VITALS: BP 127/66
[2023-07-14 03:31] VITALS: BP 115/58
[2023-07-14 06:08] LABS: BASOPHILS ABSOLUTE AUTO 0.05 K/mm3 (0.00-0.23); BASOPHILS PERCENT AUTO 1 % (0-2); EOSINOPHILS ABSOLUTE AUTO 0.24 K/mm3 (0.00-0.68); EOSINOPHILS PERCENT AUTO 3 % (0-6); Hemoglobin 8.2 g/dL (11.5-16.0); IMMATURE GRAN PERCENT AUTO 1 % (0-1); LYMPHOCYTES ABSOLUTE AUTO 0.74 K/mm3 (0.84-5.20); LYMPHOCYTES PERCENT AUTO 9 % (21-46); MONOCYTES ABSOLUTE AUTO 0.74 K/mm3 (0.16-1.47); MONOCYTES PERCENT AUTO 9 % (4-13); Mean Corpuscular HGB Conc 32.8 g/dL (31.5-36.5); Mean Corpuscular Volume 76 fL (80-100); Mean Platelet Volume 10.2 fL (9.1-12.4); NEUTROPHILS ABSOLUTE AUTO 5.97 K/mm3 (1.96-9.15); NEUTROPHILS PERCENT AUTO 76 % (41-73); Platelet Count 555 K/mm3 (150-400); RDW Coefficient Variation 26.6 % (11.7-14.2); Red Blood Cell Count 3.28 M/mm3 (3.80-5.20); White Blood Cell Count 7.84 K/mm3 (4.00-11.30)
--- NOTE | 2023-07-14 06:38 | NUR ---
FURNACE SETTER SUMMARY NO ACUTE CHANGE. PT IS DROWSY/LETHARGIC WHEN AWAKE. SLEPT WELL T/O THE NIGHT. PT REQUIRING ASSESSMENT OF NEEDS--PT NOT MAKING NEEDS KNOWN UNLESS PROMPTED. Q2 TURNS AND REGULAR INTERVAL ROUNDING T/O THE SHIFT. CALL LIGHT IN REACH.
[2023-07-14 06:41] LABS: Albumin, Blood 1.2 g/dL (3.4-5.0); Anion Gap 5 mmol/L (3-11); Blood Urea Nitrogen 19 mg/dL (8-24); Bun/Creatinine Ratio 31.5 (12.0-20.0); CO2, Blood 31 mmol/L (21-32); Calcium, Blood 7.3 mg/dL (8.5-10.1); Chloride, Blood 110 mmol/L (98-108); Glomerular Filtration Rate 86 (60-); Glucose, Blood 89 mg/dL (70-99); Magnesium, Blood 1.7 mg/dL (1.6-2.4); Phosphorus, Blood 2.3 mg/dL (2.5-4.9); Potassium, Blood 3.3 mmol/L (3.5-5.5); Sodium, Blood 143 mmol/L (136-145)
[2023-07-14 07:42] VITALS: BP 135/67
[2023-07-14 15:23] VITALS: BP 128/65
[2023-07-14] MEDS ORDERED: Potassium Phosphate,Monobasic 500 MG Tablet PO SCH (17:00)
--- NOTE | 2023-07-14 18:30 | NUR ---
SUMMARY- AAOX4. 2 MAX ASSIST TO THE CHAIR WITH WALKER AND GAIT BELT. PT DENIES PAIN THIS SHIFT. PT REFUSES TO MOVE MOST PARTS OF HER BODY WHEN BEING CHANGED OR WITH ANY ACTIVITY. PT IS SEVERELY DECONDITIONED AND DOES IS NOT MOTIVATED TO MOVE HER BODY IN ANY WAY.
[2023-07-14 19:58] VITALS: BP 114/56
--- NOTE | 2023-07-15 05:01 | NUR ---
BIOINFORMATICS DEVELOPER SUMMARY NO ACUTE CHANGES. PT RESTFUL T/O THE NIGHT. 2P FULL ASSIST TO REPOSITION IN BED AND BRIEF CHANGES. PT ABLE TO REPORT WHEN SOILED AND REQUEST ASSISTANCE. PT CALLS APPROPRIATELY. CALL LIGHT IN REACH.
[2023-07-15 05:28] VITALS: BP 102/66
[2023-07-15 05:58] LABS: Hematocrit 25.9 % (33.0-51.0); Hemoglobin 8.4 g/dL (11.5-16.0)
[2023-07-15 06:21] LABS: Albumin, Blood 1.3 g/dL (3.4-5.0); Anion Gap 5 mmol/L (3-11); Blood Urea Nitrogen 18 mg/dL (8-24); CO2, Blood 31 mmol/L (21-32); Calcium, Blood 7.7 mg/dL (8.5-10.1); Chloride, Blood 108 mmol/L (98-108); Creatinine, Blood 0.51 mg/dL (0.40-1.00); Glomerular Filtration Rate 89 (60-); Glucose, Blood 98 mg/dL (70-99); Phosphorus, Blood 2.4 mg/dL (2.5-4.9); Potassium, Blood 3.4 mmol/L (3.5-5.5); Sodium, Blood 141 mmol/L (136-145)
[2023-07-15] MEDS ORDERED: Potassium Phosphate Dibasic 20 MM in Dextrose 5% 500 ML IV STA (07:34)
[2023-07-15 08:35] VITALS: BP 118/63
[2023-07-15 15:48] VITALS: BP 124/62
--- NOTE | 2023-07-15 19:09 | NUR ---
PT PLEASANT TODAY. FAMILY IN TO VISIT SEVERAL TIMES TODAY. NO C/O PAIN. LEGS CONTINUE TO HAVE +2-+3 EDEMA. WOUND CARE HONEY ADMIN FOR COCCYX WOUND. NO NEW CONCERNS NOTED. PLAN LOOKS LIKE D/C NEXT DAY OR TWO ON HOSPICE TO HOME. FAMILY STATES ALL HELPING HER. BED IN LOW POSITION, CALL LITE IN REACH, CALLS APPROP
[2023-07-15 19:36] VITALS: BP 124/61
[2023-07-16 04:23] VITALS: BP 122/61
--- NOTE | 2023-07-16 06:44 | NUR ---
Shift Summary Pt c/o of pain on her tailbone, repositioning her with pillows wedged far under her side relieved the pain. Dressing on her tailbone remained C/D/I this shift. Incontinent voids, attends changed PRN. Plan is to go home on hospice today, per family member she has multiple adult family members who are going to help with her care.
[2023-07-16 07:49] VITALS: BP 127/65
[2023-07-16] MEDS ORDERED: K-Phos Origina500 MG PO (11:03)
[2023-07-16] MEDS ORDERED: FURO40 PO (11:05)
[2023-07-16] MEDS ORDERED: Folic Acid0.8 MG PO (11:09)
[2023-07-16] MEDS ORDERED: MICONAZOLE NITR85 GM TOP (11:11)
--- NOTE | 2023-07-16 13:15 | NUR ---
DISCHARGE PT DISCHARGED AFTER DC EDUCATION WAS COMPLETED WITH HER DAUGHTER, VIRGINIE. PG REMOVED & INTACT. PT CHANGED PRIOR TO DC AND 2P MAX ASSIT INTO WHEELCHAIR FOR TRANSPORT. PT TO MEET HOSPICE AT HOME FOR ADMIT. DC MEDS FAXED TO [facility]. NO ACUTE CHANGES IN ASSESSMENT PRIOR TO DC. TRANSPORTED VIA WHEELCHAIR VAN, DAUGHTER FOLLOWING BEHIND.
== END 2023-07-16 12:38 | disposition hospice, home (50) | DRG 871 ==
LOC: ER 15:06 → ERHOLD 15:07 → MEDS 21:33
PROVIDERS: Internal Medicine; Student in an Organized Health Care Education/Training Program; ADMIT Family Medicine
PROC: 3E03329 Introduction of Other Anti-infective into Peripheral Vein, Percutaneous Approach (ICD-10-PCS; 2023-07-01)
PROC: 0W993ZZ Drainage of Right Pleural Cavity, Percutaneous Approach (ICD-10-PCS; principal; 2023-07-12)
DX: A41.9 Sepsis, unspecified organism (principal); E43 Unspecified severe protein-calorie malnutrition; J18.9 Pneumonia, unspecified organism; I50.33 Acute on chronic diastolic (congestive) heart failure; I48.92 Unspecified atrial flutter; A09 Infectious gastroenteritis and colitis, unspecified; E87.1 Hypo-osmolality and hyponatremia; I82.812 Embolism and thrombosis of superficial veins of left lower extremity; J91.8 Pleural effusion in other conditions classified elsewhere; Z66 Do not resuscitate; E88.09 Other disorders of plasma-protein metabolism, not elsewhere classified; I25.10 Atherosclerotic heart disease of native coronary artery without angina pectoris; E87.6 Hypokalemia; R53.81 Other malaise; I11.0 Hypertensive heart disease with heart failure; E87.5 Hyperkalemia; E86.0 Dehydration; D75.839 Thrombocytosis, unspecified; I48.0 Paroxysmal atrial fibrillation; E78.5 Hyperlipidemia, unspecified; D50.9 Iron deficiency anemia, unspecified; Z68.27 Body mass index [BMI] 27.0-27.9, adult; Z85.038 Personal history of other malignant neoplasm of large intestine; Z90.49 Acquired absence of other specified parts of digestive tract; Z79.01 Long term (current) use of anticoagulants; Z95.5 Presence of coronary angioplasty implant and graft; Z88.0 Allergy status to penicillin; Z88.1 Allergy status to other antibiotic agents; Z88.2 Allergy status to sulfonamides
CPT/HCPCS: 0241U; 32555; 36415; 71045; 71046; 74177; 78226; 80048; 80053; 80069; 81001; 82042; 82607; 82728; 82746; 82945; 82947; 83540; 83550; 83605; 83615; 83735; 83880; 83986; 84100; 84145; 84157; 85014; 85018; 85025; 85027; 85610; 85730; 87070; 87075; 87086; 87205; 87507; 89051; 92526; 92610; 93005; 93010; 93308; 93321; 93970; 94760; 96361; 96365-59; 96366; 96367; 96368; 96375; 96376; 97110; 97163; 97166; 97530; 97535; 99285-25; A9270; A9537; C1751; G0378; J0612; J0692; J0780; J1644; J1815; J1940; J3480; J7030; J7040; J7050; J7060; Q9967

== ENCOUNTER → 2023-08-06 | Outpatient (CLI) | payer MEDICARE, OTHER ==
[~2023-08-06] MED LIST changes: +ACET325 PO; +ATOR80 PO; +AZIT250 PO; +CEFTRIAXON1 GM/50 M1; +ELIQUIS5 M2 PO; +FLUC200 PO; +FURO40 PO; +Folic Acid0.8 MG PO; +GUAI600T33 PO; +K-Phos Origina500 MG PO; +METO50ER PO; +MICONAZOLE NITR85 GM TOP; +PHOS-NAK PO
[2023-08-07 16:32] LABS: Source, Urine Voided
[2023-08-07 17:12] LABS: Appearance, Urine Hazy (Clear); Bilirubin, Urine Neg (Neg); Blood, Urine Neg (Neg); Color, Urine Yellow (P-Yellow); Glucose Qualitative, Urine Neg (Neg); Ketones, Urine Neg (Neg); Leukocyte Esterase, Urine 1+ (Neg); Nitrite, Urine Neg (Neg); Protein, Urine 1+ (Neg); Specific Gravity, Urine 1.015 (1.003-1.022); Urobilinogen, Urine NORM (Normal); pH, Urine 6.5 (5.0-8.0)
[2023-08-07 17:25] LABS: Bacteria Few /hpf; Calcium Oxalate Crystals Few /hpf; Red Blood Cells, Urine 0-2 /hpf (0-2); Squamous Epithelial Cells Few /hpf (Few)
== END | disposition home or self-care (01) ==
LOC: LAB SHORT 16:28 → LAB 16:28
PROVIDERS: Student in an Organized Health Care Education/Training Program
DX: I11.0 Hypertensive heart disease with heart failure (principal); I50.22 Chronic systolic (congestive) heart failure; D50.9 Iron deficiency anemia, unspecified; L89.153 Pressure ulcer of sacral region, stage 3
CPT/HCPCS: 81001; 87077; 87086; 87186

== ENCOUNTER 2023-08-08 02:46 | Day surgery (SDC) | payer MEDICARE, OTHER | END 2023-08-08 22:47 | disposition home or self-care (01) | LOC: WOUND 02:46 | DX: L89.303 Pressure ulcer of unspecified buttock, stage 3 (principal); I25.10 Atherosclerotic heart disease of native coronary artery without angina pectoris; I48.91 Unspecified atrial fibrillation; I50.9 Heart failure, unspecified; Z88.2 Allergy status to sulfonamides; Z88.0 Allergy status to penicillin | CPT/HCPCS: G0463 ==

== ENCOUNTER 2023-08-14 04:33 | Day surgery (SDC) | payer MEDICARE, OTHER | END 2023-08-14 23:13 | disposition home or self-care (01) | LOC: WOUND 04:33 | DX: L89.303 Pressure ulcer of unspecified buttock, stage 3 (principal); I25.10 Atherosclerotic heart disease of native coronary artery without angina pectoris; I48.91 Unspecified atrial fibrillation | CPT/HCPCS: G0463 ==

== ENCOUNTER 2023-10-09 03:20 | Day surgery (SDC) | payer MEDICARE, OTHER | END 2023-10-09 23:04 | disposition home or self-care (01) | LOC: WOUND 03:20 | DX: L89.303 Pressure ulcer of unspecified buttock, stage 3 (principal); I25.10 Atherosclerotic heart disease of native coronary artery without angina pectoris; I48.91 Unspecified atrial fibrillation | CPT/HCPCS: G0463 ==

== ENCOUNTER → 2024-01-24 | Outpatient (CLI) | payer MEDICARE, OTHER | LOC: LAB 09:35 → LAB SHORT 09:35 | DX: C18.0 Malignant neoplasm of cecum (principal); I50.9 Heart failure, unspecified; J90 Pleural effusion, not elsewhere classified; Z87.891 Personal history of nicotine dependence; Z79.899 Other long term (current) drug therapy; Z88.0 Allergy status to penicillin; Z88.2 Allergy status to sulfonamides; Z88.1 Allergy status to other antibiotic agents | CPT/HCPCS: 88108; 88305 ==